=== PATIENT | female | born 1935 | race Caucasian/White ===

== ENCOUNTER 2024-11-11 11:50 | Inpatient (IN) ==
--- NOTE | 2024-11-11 12:29 | Emergency Department Note ---
Impression & Plan Hypoxia, CHF (congestive heart failure), Acute respiratory distress ED Provider Note Diagnosis: Respiratory distress, CHF exacerbation, pulmonary edema, hypoxia Disposition: Admission CHIEF COMPLAINT: Hypoxia HPI: Patient 89-year-old female presenting with acute respiratory distress. Patient placed on nonrebreather by ambulance service. Patient was found to have oxygen saturation of 77% on room air. Patient complaining of shortness of breath currently. Patient denies any chest pain. Patient has history of congestive heart failure and has lower extremity edema today. Patient denies any recent cough or fevers. Patient denies any nausea vomiting or abdominal pain. PAST MEDICAL HISTORY: See Below PAST SURGICAL HISTORY: See Below SOCIAL HISTORY: See Below HOME MEDICATIONS: See Below ALLERGIES: See Below VITALS: See Below PHYSICAL EXAMINATION: GENERAL: Severe distress EYE EXAM: Normal conjunctiva. OROPHARYNX: Moist mucus membranes. Grossly normal dentition. NECK: Supple, LUNGS: Diminished breath sounds bilaterally HEART: NSR, lower extremity edema bilaterally ABDOMEN: Abdomen soft, non-tender, normo-active bowel sounds, no masses, no rebound or guarding BACK: No CVA TTP. SKIN: No rashes and no bruising. UPPER EXTREMITIES: Upper extremities are grossly normal LOWER EXTREMITIES: Grossly normal, no edema. NEURO EXAM: A&O x3,, normal speech, moves all 4 extremities PSYCH: Cooperative MEDICAL DECISION MAKING: History obtained from: Patient, EMS, daughters ER Course: Patient is an 89-year-old female presenting with acute respiratory distress. Patient's daughter reportedly was there at the assisted living last evening and she was her normal self. Assisted living had found her in respiratory distress this morning. Patient placed on a nonrebreather by EMS due to profound hypoxia less than 80%. Patient does not use oxygen at baseline. Patient has lower extremity edema present. Patient has a history of congestive heart failure. Patient had Nitropaste placed as well as given IV Lasix upon arrival. Patient was able to be titrated to 6 L nasal cannula oxygen support. Patient's chest x- ray shows significant pulmonary edema. Patient's troponin and BNP elevated. Patient's case discussed with hospitalist service who agreed to admit for further treatment and evaluation Labs (independently interpreted) are significant for: Elevated troponin, elevated BNP Imaging results (independently interpreted): Chest x-ray pulmonary edema EKG interpretation (independently interpreted): Sinus rhythm no ST segment elevation or depression left bundle branch block Medications given: Nitropaste, Lasix Consultants: Hospitalist CODE STATUS; confirmed with patient and family DNR/ DNI, would allow for medication treatments and BiPAP if needed Chronic conditions affecting care: CHF Triage Nursing notes reviewed and agree them. Vital Signs: reviewed and remarkable for: Hypoxia Critical care time: 55 minutes, this does not include time for procedures Past Med/Surg History Problem List (Updated 11/11/24 @ 16:08 by Ace Perez DO) Acute respiratory distress (Acute) ELISSA (acute kidney injury) NSTEMI (non-ST elevated myocardial infarction) Hypertensive emergency Thrombocytopenia Elevated troponin (Acute) Acute UTI (Acute) Hypoxia (Acute) Vomiting (Acute) CHF (congestive heart failure) (Acute) Respiratory failure (Acute) Acidosis Hypercapnic respiratory failure Hyperglycemia CKD (chronic kidney disease) stage 4, GFR 15-29 ml/min Acute on chronic heart failure Hypoxic respiratory failure Hypothyroidism (Chronic) GERD (gastroesophageal reflux disease) (Chronic) Dyslipidemia (Chronic) Scalp laceration (Acute) Medical History Hypertension Surgical History No pertinent past surgical history Social History Smoking Status: Never smoker Hx Alcohol Use: No Hx Substance Use: No Preferred Language: Portuguese Communication Ability: Effective Sample Taker Operator Required: No Beliefs That Will Affect Care: None Current Living Situation: Alone current occupational status: retired Feels Safe at Home: Yes Assistive Devices: Walker and Wheelchair Allergies Allergies Allergy/AdvReac Type Severity Reaction Status Date / Time Sulfa (Sulfonamide Allergy Intermediate RASH Verified 11/11/24 13:39 Antibiotics) Iodinated Contrast Media AdvReac Unknown NOT TO USE Verified 11/11/24 13:39 DUE TO KIDNEY FAILURE Home Meds Home Medications Medication Instructions Recorded Confirmed atorvastatin 20 mg tablet 20 mg PO QAM 07/30/24 11/11/24 bimatoprost 0.01 % eye drops 1 drp ophthalmic (eye) HS 07/30/24 11/11/24 (Lumigan) dorzolamide 22.3 mg-timolol 6.8 1 drp OPB QAM 07/30/24 11/11/24 mg/mL eye drops furosemide 20 mg tablet 10 mg PO QAM 07/30/24 11/11/24 levothyroxine 75 mcg tablet 75 mcg PO 6XWK 07/30/24 11/11/24 lisinopril 2.5 mg tablet 2.5 mg PO QAM 07/30/24 11/11/24 omeprazole 20 mg tablet,delayed 20 mg PO QAM 07/30/24 11/11/24 release sertraline 50 mg tablet 50 mg PO QPM 07/30/24 11/11/24 acetaminophen 325 mg tablet 650 mg PO Q4H PRN Pain 11/11/24 11/11/24 acetaminophen 500 mg tablet 1,000 mg PO BID PRN Pain 11/11/24 11/11/24 aspirin 81 mg chewable tablet 81 mg PO DAILY 11/11/24 11/11/24 estradiol 0.01% (0.1 mg/gram) 1 g vaginal 2XWK 11/11/24 11/11/24 vaginal cream famotidine 20 mg tablet 20 mg PO HS 11/11/24 11/11/24 lactase 3,000 unit tablet (Lactaid) 9,000 unit PO DAILY PRN W/ Dairy 11/11/24 11/11/24 food loperamide 2 mg capsule (Imodium 2 mg PO TID PRN Diarrhea 11/11/24 11/11/24 A-D) mbpghjnm-hye-[id number] acid 0.4 1 tab PO 3XWK 11/11/24 11/11/24 mg-lycopene 300 mcg-lutein 250 mcg tablet (Centrum Silver) ondansetron HCl 4 mg tablet 4 mg PO Q6H PRN Nausea And Vomiting 11/11/24 11/11/24 sodium bicarbonate 650 mg tablet 650 mg PO BID 11/11/24 11/11/24 Previous Rx's Medication Instructions Recorded carvedilol 6.25 mg tablet 6.25 mg PO BIDM #60 tabs 08/05/24 isosorbide mononitrate 30 mg 30 mg PO QAM #30 tabs 08/05/24 tablet,extended release 24 hr Results & Data (ED) Vital Signs Vital Signs - 24 hr 11/11/24 11:45 11/11/24 12:06 11/11/24 12:06 Temperature 36.5 C Temperature Source Oral Pulse Rate 108 H Pulse Rate [Apical] Pulse Rate from SpO2 Sensor Respiratory Rate 30 H Respiratory Effort / Characteristics Short of Breath Spontaneous Short of Breath Respiratory Depth Shallow Respiratory Pattern Rapid/Shallow Rapid/Shallow Blood Pressure 186/111 H Blood Pressure [Left Arm] Blood Pressure Mean 136 Blood Pressure Mean [Left Arm] Blood Pressure Position Lying Pulse Oximetry 77 L 77 L Oxygen Delivery Method Room Air Room Air Nasal Cannula Non-rebreather Oxygen Flow Rate 0 Sepsis Recent Fever Within 48 Hours No Sepsis New/Unexplained Change in Mental Status No Sepsis Action Taken by Nursing Physician Notified Oxygen Flow Rate - Titration 15 Pulse Oximetry Post Tiitration 96 11/11/24 12:07 11/11/24 12:11 11/11/24 12:15 Temperature Temperature Source Pulse Rate 106 H Pulse Rate [Apical] Pulse Rate from SpO2 Sensor Respiratory Rate Respiratory Effort / Characteristics Respiratory Depth Respiratory Pattern Blood Pressure Blood Pressure [Left Arm] Blood Pressure Mean Blood Pressure Mean [Left Arm] Blood Pressure Position Pulse Oximetry 100 98 Oxygen Delivery Method Nasal Cannula Nasal Cannula Non-rebreather Oxygen Flow Rate 5 15 Sepsis Recent Fever Within 48 Hours Sepsis New/Unexplained Change in Mental Status Sepsis Action Taken by Nursing Oxygen Flow Rate - Titration 5 Pulse Oximetry Post Tiitration 100 11/11/24 12:45 11/11/24 13:00 11/11/24 13:00 Temperature Temperature Source Pulse Rate 149 H Pulse Rate [Apical] 110 H Pulse Rate from SpO2 Sensor 105 H Respiratory Rate 30 H 32 H Respiratory Effort / Characteristics Short of Breath Respiratory Depth Shallow Respiratory Pattern Blood Pressure 182/113 H Blood Pressure [Left Arm] 194/114 H Blood Pressure Mean 146 Blood Pressure Mean [Left Arm] 140 Blood Pressure Position Pulse Oximetry 96 95 Oxygen Delivery Method Nasal Cannula Nasal Cannula Oxygen Flow Rate 4 Sepsis Recent Fever Within 48 Hours Sepsis New/Unexplained Change in Mental Status Sepsis Action Taken by Nursing Oxygen Flow Rate - Titration Pulse Oximetry Post Tiitration 11/11/24 14:30 Temperature Temperature Source Pulse Rate 101 H Pulse Rate [Apical] Pulse Rate from SpO2 Sensor Respiratory Rate Respiratory Effort / Characteristics Respiratory Depth Respiratory Pattern Blood Pressure Blood Pressure [Left Arm] Blood Pressure Mean Blood Pressure Mean [Left Arm] Blood Pressure Position Pulse Oximetry Oxygen Delivery Method Oxygen Flow Rate Sepsis Recent Fever Within 48 Hours Sepsis New/Unexplained Change in Mental Status Sepsis Action Taken by Nursing Oxygen Flow Rate - Titration Pulse Oximetry Post Tiitration Laboratory Data 11/11/24 12:00 11/11/24 12:00 Lab Results 11/11/24 11/11/24 11/11/24 Range/Units 12:00 12:05 14:20 WBC 11.61 H (4.8-10.8) K/ul RBC 3.76 L (4.20-5.40) M/uL Hgb 11.5 L (12.0-16.0) g/dl Hct 36.2 L (37.0-47.0) % MCV 96.3 (80.0-100.0) fL MCH 30.6 (25.0-34.0) pg MCHC 31.8 L (32.0-36.0) g/dL RDW Std Deviation 50.4 H (36.4-46.3) fL RDW Coeff of Amanda 14.5 (11.5-14.5) % Plt Count 217 (130-400) K/uL MPV 10.3 (9.4-12.4) fL Immature Gran % (Auto) 0.7 % Neut % (Auto) 58.3 % Lymph % (Auto) 30.0 % [place] % (Auto) 8.1 % Eos % (Auto) 2.6 % Baso % (Auto) 0.3 % Neut # (Auto) 6.77 H (1.40-6.50) K/uL Lymph # (Auto) 3.48 H (1.20-3.40) K/uL [place] # (Auto) 0.94 H (0.11-0.59) K/uL Eos # (Auto) 0.30 (0.00-0.50) K/uL Baso # (Auto) 0.04 (0.00-0.20) K/uL Immature Gran # (Auto) 0.08 (0.01-0.20) K/uL Sodium 142 (136-145) mmol/L Potassium 4.2 (3.5-5.1) mmol/L Chloride 108 H (98-107) mmol/L Carbon Dioxide 26 (21-32) mmol/L Anion Gap 8 (3-11) BUN 40 H (6-23) mg/dl Creatinine 1.77 H (0.6-1.2) mg/dl Est Cr Clr Drug Dosing Not Reportable eGFR 27.14 BUN/Creatinine Ratio 22.6 H (10-20) Glucose 228 H (70-99(Fasting)) mg/dl Calcium 9.6 (8.6-10.3) mg/dl Total Bilirubin 0.4 (0.2-1.0) mg/dl AST 20 (13-39) U/L ALT 15 (7-52) U/L Alkaline Phosphatase 64 (34-104) U/L Troponin I High Sens 61.4 H* 166.2 H* D (0-14) pg/ml B-Natriuretic Peptide 1495 H (0-100) pg/ml Total Protein 7.3 (6.0-8.3) gm/dl Albumin 3.8 (3.4-5.0) gm/dl Globulin 3.5 (2.5-4.0) gm/dl Albumin/Globulin Ratio 1.1 (0.9-2) Procalcitonin 0.02 (0-0.5) ng/ml SARS-CoV-2 (PCR) NEGATIVE (Negative) Influenza Type A (PCR) Negative (Neg) Influenza Type B (PCR) Negative (Neg) RSV (RT-PCR) Negative (Neg) Administered Medications Nitroglycerin (Nitroglycerin 2% Ointment 30gm Tube) 1 inch EXT Q6H IVONNE Stop: 12/11/24 12:14 Last Admin: 11/11/24 12:33 Dose: 1 inch Documented By: GANGA Discontinued Medications Furosemide (Furosemide 40 Mg/4 Ml Vial) 40 mg IV ONE ONE Stop: 11/11/24 12:11 Last Admin: 11/11/24 12:34 Dose: 40 mg Documented By: GANGA Ondansetron HCl (Ondansetron Inj 2 Mg/Ml 2 Ml Vial) 4 mg IV NOW STA Stop: 11/11/24 13:03 Last Admin: 11/11/24 13:06 Dose: 4 mg Documented By: GILDA Imaging Data Radiologist's Impression: Chest X-Ray 11/11/24 12:11 XR chest 1V portable HISTORY: 89 years-old Female Dyspnea COMPARISON: 07/31/2024, 07/30/2024. TECHNIQUE: AP view of the chest FINDINGS: Cardiac silhouette is enlarged. There is no pneumothorax. Probable trace pleural effusions. Probable hiatal hernia. Diffuse interstitial coarsening is again noted with ill-defined right midlung and right basilar airspace opacities redemonstrated, not significantly similar to the July 2024 exams. Bones appear grossly intact. IMPRESSION: 1. Cardiomegaly with mixed interstitial and alveolar opacities redemonstrated, similar to the July 2024 exams. Differential considerations include asymmetric pulmonary edema versus multifocal pneumonia. 2. Probable trace pleural effusions. ACT 112: Negative or not required by law. The above report was generated using voice recognition software. It may contain grammatical, syntax or spelling errors. Electronically signed by: Phillip Nicole M.D. 11/11/2024 1:29 PM Discharge Plan Visit Data Chief Complaint: Shortness of Breath/Dyspnea Stated Complaint: SOB, HYPERTENSION ED Provider: Ace Perez Discharge Problem: Hypoxia, CHF (congestive heart failure), Acute respiratory distress Condition: Critical Forms Stand Alone Forms: [facility] [employer] Prescriptions Prescriptions: No Action dorzolamide-timolol 22.3-6.8 mg/mL drops 1 drp OPB QAM sertraline 50 mg tablet 50 mg PO QPM lisinopril 2.5 mg tablet 2.5 mg PO QAM atorvastatin 20 mg tablet 20 mg PO QAM levothyroxine 75 mcg tablet 75 mcg PO 6XWK Rx Instructions: take in morning at least 30 minutes prior to breakfast or other meds. Skip on Sundays furosemide 20 mg tablet 10 mg PO QAM Lumigan 0.01 % drops 1 drp ophthalmic (eye) HS omeprazole 20 mg Tablet,Delayed Release (Dr/Ec) 20 mg PO QAM carvedilol 6.25 mg Tablet 6.25 mg PO BIDM Qty: 60 0RF isosorbide mononitrate 30 mg Tablet Extended Release 24 Hr 30 mg PO QAM Qty: 30 0RF acetaminophen 325 mg Tablet 650 mg PO Q4H PRN (Reason: Pain) loperamide [Imodium A-D] 2 mg Capsule 2 mg PO TID PRN (Reason: Diarrhea) ondansetron HCl 4 mg tablet 4 mg PO Q6H PRN (Reason: Nausea And Vomiting) acetaminophen [Tylenol Ex Str Rapid Release] 500 mg Tablet 1,000 mg PO BID PRN (Reason: Pain) famotidine 20 mg Tablet 20 mg PO HS sodium bicarbonate 650 mg tablet 650 mg PO BID lactase [Lactaid] 3,000 unit Tablet 9,000 unit PO DAILY PRN (Reason: W/ Dairy food) Rx Instructions: administer with meals and/or snacks aspirin 81 mg Tablet,Chewable 81 mg PO DAILY estradiol 0.01 % (0.1 mg/gram) cream 1 g VAGINAL 2XWK Rx Instructions: /Sat Centrum Silver 0.4 mg-300 mcg- 250 mcg Tablet 1 tab PO 3XWK Rx Instructions: Mon/Sat/Fri Referrals Referrals: Noman Cerda MD [Primary Care Provider] -
[2024-11-11 12:32] LABS: Hematocrit (blood only) 36.2 % (37.0-47.0); Hemoglobin 11.5 g/dl (12.0-16.0); Immature Granulocytes # (auto) 0.08 K/uL (0.01-0.20); Immature Granulocytes % (auto) 0.7 %; Mean Corpuscular Hemoglobin 30.6 pg (25.0-34.0); Mean Corpuscular Volume 96.3 fL (80.0-100.0); Platelet Count 217 K/uL (130-400); RDW Standard Deviation 50.4 fL (36.4-46.3); Red Blood Count 3.76 M/uL (4.20-5.40); White Blood Count 11.61 K/ul (4.8-10.8)
[2024-11-11] MEDS: NITROGLYCERIN 2% OINTMENT 30GM TUBE EXT SCH (12:33)
[2024-11-11] MEDS: FUROSEMIDE 40 MG/4 ML VIAL IV ONE (12:34)
[2024-11-11 12:55] LABS: Alanine Aminotransferase 15 U/L (7-52); Albumin Globulin Ratio 1.1 (0.9-2); Alkaline Phosphatase 64 U/L (34-104); Anion Gap 8 (3-11); Bilirubin,Total 0.4 mg/dl (0.2-1.0); Blood Urea Nitrogen 40 mg/dl (6-23); Calcium 9.6 mg/dl (8.6-10.3); Carbon Dioxide 26 mmol/L (21-32); Chloride 108 mmol/L (98-107); Globulin 3.5 gm/dl (2.5-4.0); Glucose 228 mg/dl (70-99(Fasting)); Potassium 4.2 mmol/L (3.5-5.1); Sodium 142 mmol/L (136-145); Total Protein 7.3 gm/dl (6.0-8.3)
[2024-11-11 13:05] LABS: Influenza A virus by PCR Negative (Neg); Influenza B virus by PCR Negative (Neg); SARS CoV2 RNA(COVID-19) Ceph NEGATIVE (Negative)
[2024-11-11] MEDS: ONDANSETRON INJ 2 MG/ML 2 ML VIAL IV STA (13:06)
--- NOTE | 2024-11-11 13:30 | XRay Report ---
XR chest 1V portable HISTORY: 89 years-old Female Dyspnea COMPARISON: 07/31/2024, 07/30/2024. TECHNIQUE: AP view of the chest FINDINGS: Cardiac silhouette is enlarged. There is no pneumothorax. Probable trace pleural effusions. Probable hiatal hernia. Diffuse interstitial coarsening is again noted with ill-defined right midlung and righ t basilar airspace opacities redemonstrated, not significantly similar to the July 2024 exams. Bones a ppear grossly intact. IMPRESSION: 1. Cardiomegaly with mixed interstitial and alveolar opacities redemonstrated, similar to the July exams. Differential considerations include asymmetric pulmonary edema versus multifocal pneumonia. 2. Probable trace pleural effusions. ACT 112: Negative or not required by law. The above report was generated using voice recognition software. It may contain grammatical, syntax o r spelling errors. Electronically signed by: Phillip Nicole M.D. 11/11/2024 1:29 PM
[2024-11-11] MEDS ORDERED: ALUMINUM/MAGNESIUM SUSP 30 ML UDC PO PRN (14:23)
[2024-11-11] MEDS ORDERED: POLYETHYLENE (MIRALAX) 17 GM PACK PO PRN (14:23)
--- NOTE | 2024-11-11 14:45 | History & Physical Report ---
Date of Service November 11, 2024 Assessment & Plan (1) Hypoxia: Plan Acute on chronic heart failure with reduced ejection fraction: July 2024 ECHO w/ EF of 35-40%. Acute hypoxic respiratory failure ISO heart failure exacerbation Demand ischemia: Likely secondary to acute illness, above. Patient presents with acute shortness of breath, cough with clear sputum. Imaging CXR with pulmonary edema, BNP elevated than prior. Troponin minimally elevated, will trend. Patient denied chest pain. Patient was given IV Lasix in the ED and was able to be weaned down to from 15 L nonrebreather to 6 L nasal cannula oxygen. Patient reports feeling better after IV Lasix. Continue with diuresis, cardiology consult, repeat echo. Continue telemetry monitoring. Abdominal pain, nausea, vomiting: possible iso acute illness, mild abd tender on exam. Will get CTAP, diet as tolerated. Possible UTI: Patient complains of burning urine, start Rocephin, await urine analysis. Hypertensive urgency: c/w home bp meds, now on increased diuretic dose, add prn bp meds. Other chronic medical conditions: Continue/resume home meds as and when able. NSTEMIcontinue home aspirin, Lipitor, carvedilol Hyperlipidemiacontinue home statin Hypertensioncontinue home Coreg, lisinopril, isosorbide. As needed blood pressure medications. DVT prophylaxis: Heparin subcu CODE STATUS: DNR/DNI History of Present Illness Chief Complaint: acute shortness of breath. Primary Care Provider: Noman Cerda MD 89-year-old lady with PMH of hypothyroidism, HLD, CKD stage IV, GERD, depression presents with acute respiratory distress from the [facility]. Patient's daughters were at bedside. History taken from chart review, d iscussion with ED physician, discussion with patient and patient's daughters. Per patient's daughter, she was at her baseline state of health until last evening, she started to have coughing fits last night, in the morning she was noted to have abdominal pain and some fever and increasing cough. Cough was with clear sputum according to the daughters. Patient had some nausea and vomiting in the morning. Patient does report some burning while passing urine for a while. Per patient's daughter, her oxygen dropped to 84% on room air at the assisted living and her blood pressure was high with SBP in 200s. Per discussion with the ED physician, patient was placed on nonrebreather and received IV Lasix in the ED and was able to wean down to 6 L nasal cannula oxygen. The daughter stated that she had similar situation in July and was admitted for heart failure exacerbation. Patient does not smoke tobacco or use alcohol. DNR/DNI as per my discussion with the patient and her daughters at bedside. Medications and plan of care reviewed with the patient and her daughters at bedside. Patient takes dorzolamide timolol eyedrops every morning, Synthroid 75 mcg every morning except Sundays, sodium bicarbonate 650 mg tablet twice daily, aspirin 81 mg every morning, Lipitor 20 mg daily, Coreg 6.25 mg twice daily, Lasix 10 mg Daily, Imdur 30 mg Daily, Prinivil 2.5 mg daily, Prilosec 20 mg daily, Pepcid 20 mg at bedtime, Lumigan 0.01% eyedrops at bedtime, Zoloft 50 mg in the evening. Allergies Allergy/AdvReac Type Severity Reaction Status Date / Time Sulfa (Sulfonamide Allergy Intermediate RASH Verified 11/11/24 13:39 Antibiotics) Iodinated Contrast Media AdvReac Unknown NOT TO USE Verified 11/11/24 13:39 DUE TO KIDNEY FAILURE Home Medications Medication Instructions Recorded Confirmed Type atorvastatin 20 mg tablet 20 mg PO QA 07/30/24 11/11/24 History bimatoprost 0.01 % eye drops 1 drp ophthalmic (eye) HS 07/30/24 11/11/24 History (Lumigan) dorzolamide 22.3 mg-timolol 6.8 1 drp OPB [facility] 07/30/24 11/11/24 History mg/mL eye drops furosemide 20 mg tablet 10 mg PO QA 07/30/24 11/11/24 History levothyroxine 75 mcg tablet 75 mcg PO 6XWK 07/30/24 11/11/24 History lisinopril 2.5 mg tablet 2.5 mg PO [facility] 07/30/24 11/11/24 History omeprazole 20 mg tablet,delayed 20 mg PO QA 07/30/24 11/11/24 History release sertraline 50 mg tablet 50 mg PO QPM 07/30/24 11/11/24 History carvedilol 6.25 mg tablet 6.25 mg PO BIDM #60 tabs 08/05/24 11/11/24 Rx isosorbide mononitrate 30 mg 30 mg PO QAM #30 tabs 08/05/24 11/11/24 Rx tablet,extended release 24 hr acetaminophen 325 mg tablet 650 mg PO Q4H PRN Pain 11/11/24 11/11/24 History acetaminophen 500 mg tablet 1,000 mg PO BID PRN Pain 11/11/24 11/11/24 History aspirin 81 mg chewable tablet 81 mg PO DAILY 11/11/24 11/11/24 History estradiol 0.01% (0.1 mg/gram) 1 g vaginal 2XWK 11/11/24 11/11/24 History vaginal cream famotidine 20 mg tablet 20 mg PO HS 11/11/24 11/11/24 History lactase 3,000 unit tablet (Lactaid) 9,000 unit PO DAILY PRN W/ Dairy 11/11/24 11/11/24 History food loperamide 2 mg capsule (Imodium 2 mg PO TID PRN Diarrhea 11/11/24 11/11/24 History A-D) gibcfsoo-lmh-iduqo acid 0.4 1 tab PO 3XWK 11/11/24 11/11/24 History mg-lycopene 300 mcg-lutein 250 mcg tablet (Centrum Silver) ondansetron HCl 4 mg tablet 4 mg PO Q6H PRN Nausea And Vomiting 11/11/24 11/11/24 History sodium bicarbonate 650 mg tablet 650 mg PO BID 11/11/24 11/11/24 History Past Med/Surg History Problem List (Updated 09/05/24 @ 00:08 by Rosalba Rouse) ELISSA (acute kidney injury) NSTEMI (non-ST elevated myocardial infarction) Hypertensive emergency Thrombocytopenia Elevated troponin (Acute) Acute UTI (Acute) Hypoxia (Acute) Vomiting (Acute) CHF (congestive heart failure) (Acute) Respiratory failure (Acute) Acidosis Hypercapnic respiratory failure Hyperglycemia CKD (chronic kidney disease) stage 4, GFR 15-29 ml/min Acute on chronic heart failure Hypoxic respiratory failure Hypothyroidism (Chronic) GERD (gastroesophageal reflux disease) (Chronic) Dyslipidemia (Chronic) Scalp laceration (Acute) Medical History Hypertension Surgical History No pertinent past surgical history Social History Smoking Status: Never smoker Hx Alcohol Use: No Hx Substance Use: No Preferred Language: Tunisian Communication Ability: Effective Nuclear Engineer Required: No Beliefs That Will Affect Care: None Current Living Situation: Alone current occupational status: retired Feels Safe at Home: Yes Assistive Devices: Walker and Wheelchair Review of Systems Review of Systems: Negative otherwise mentioned in HPI. Physical Exam Physical Exam: GENERAL: Alert and oriented x3. NAD, on 4L NC O2, appears old, weak, frail, ill. HEENT: No pallor, no icterus. Pupils equal, round and reactive to light. Oral mucosa moist. NECK: No JVD, no neck masses. HEART: S1 and S2 heard. Regular rate and rhythm. HR in 100s, No murmur, no gallop. RESPIRATORY SYSTEM: Normal AP diameter. No accessory muscle use. No wheezing, b/l crackles. ABDOMEN: Soft, bowel sounds present, generalized tender x mild, no distention. CENTRAL NERVOUS SYSTEM: No facial droop. Speech is clear. Obeys simple commands. Moves extremities. EXTREMITIES: trace ble edema, no erythema seen. Results & Data Results & Data Vital Signs (Past 12 Hours) Vital Signs Temp Pulse Pulse Resp BP BP Pulse Ox 11/11/24 13:00 149 H 32 H 95 11/11/24 13:00 182/113 H 11/11/24 12:45 110 H 30 H 194/114 H 96 11/11/24 12:15 98 11/11/24 12:11 100 11/11/24 12:07 106 H 11/11/24 12:06 77 L 11/11/24 11:45 36.5 C 108 H 30 H 186/111 H 77 L O2 Del Method O2 Flow Rate 11/11/24 13:00 Nasal Cannula 11/11/24 13:00 11/11/24 12:45 Nasal Cannula 4 11/11/24 12:15 Nasal Cannula, Non-rebreather 15 11/11/24 12:11 Nasal Cannula 5 11/11/24 12:07 11/11/24 12:06 Room Air, Nasal Cannula, Non-rebreather 0 11/11/24 11:45 Room Air
--- NOTE | 2024-11-11 16:18 | Electrocardiogram Report ---
Test Reason : Blood Pressure : */* mmHG Vent. Rate : 113 BPM Atrial Rate : 113 BPM P-R Int : 190 ms QRS Dur : 138 ms QT Int : 338 ms P-R-T Axes : * -16 151 degrees QTcB Int : 463 ms Sinus tachycardia with occasional Premature ventricular complexes Left bundle branch block Abnormal ECG When compared with ECG of 01-Aug-2024 04:42, Premature ventricular complexes are now Present Premature supraventricular complexes are no longer Present CT interval has decreased Left bundle branch block is now Present Confirmed by Jones Amezcua ([id number]) on 11/11/2024 4:17:46 PM Referred By: Confirmed By: Jones Amezcua
[2024-11-11] MEDS: cefTRIAXone SODIUM 2,000 MG/50 ML BAG IV SCH (16:49)
[2024-11-11] MEDS: ONDANSETRON INJ 2 MG/ML 2 ML VIAL IV PRN (18:05)
[2024-11-11] MEDS: LEVOTHYROXINE SODIUM 75 MCG TABLET PO SCH (18:07)
[2024-11-11 18:41] LABS: Appearance Urine Clear (Clear); Glucose Urine UA Negative (Negative)
[2024-11-11 18:58] LABS: Epithelial Cell Urine 0-2 /hpf (0-2)
[2024-11-11] MEDS: LABETALOL HCL IV 5 MG/ML 20ML IV PRN (19:54)
[2024-11-11] MEDS: SODIUM BICARBONATE 650 MG TAB PO SCH (20:09)
[2024-11-11] MEDS: BIMATOPROST 0.01% OP SOLN 2.5 ML BTL OPB SCH (20:09)
[2024-11-11] MEDS: HEPARIN SOD 5,000 UNIT/0.5 ML VIAL SQ SCH (20:09)
[2024-11-11] MEDS: SERTRALINE HCL 50 MG TABLET PO SCH (20:10)
[2024-11-11] MEDS: FAMOTIDINE 20 MG TAB PO SCH (20:10)
--- NOTE | 2024-11-12 04:14 | Communication Note ---
Date of Service: November 12, 2024 Made aware by RN of progressive troponin elevation overnight Patient asymptomatic as per RN. 61 -> 166 -> 1014 -> 2501 AP NSTEMI Continue aspirin, beta-negro and statin Rx orders from admission TTE, IV heparin
[2024-11-12] MEDS: HEPARIN 25000 UNIT/500 ML D5W 25,000 UNITS/500 ML BAG IV SCH (04:55)
[2024-11-12] MEDS: Heparin IV Adult Wt-Based Standard *NO* INITIAL Bolus Protocol IV STA (05:03)
[2024-11-12] MEDS: ACETAMINOPHEN 325 MG TAB PO PRN (05:11)
[2024-11-12 05:51] LABS: Hematocrit (blood only) 37.7 % (37.0-47.0); Hemoglobin 11.8 g/dl (12.0-16.0); Immature Granulocytes # (auto) 0.11 K/uL (0.01-0.20); Immature Granulocytes % (auto) 0.8 %; Mean Corpuscular Hemoglobin 30.3 pg (25.0-34.0); Mean Corpuscular Volume 96.9 fL (80.0-100.0); Platelet Count 183 K/uL (130-400); RDW Standard Deviation 49.7 fL (36.4-46.3); Red Blood Count 3.89 M/uL (4.20-5.40); White Blood Count 13.02 K/ul (4.8-10.8)
[2024-11-12 06:06] LABS: Anion Gap 11.0 (3-11); Blood Urea Nitrogen 47.0 mg/dl (6-23); Calcium 9.7 mg/dl (8.6-10.3); Carbon Dioxide 25.0 mmol/L (21-32); Chloride 108.0 mmol/L (98-107); Creatinine Clr Calc Pharmacy 13.4 ml/min; Glucose 135.0 mg/dl (70-99(Fasting)); Magnesium 2.3 mg/dl (1.7-2.4); Potassium 4.6 mmol/L (3.5-5.1); Sodium 144.0 mmol/L (136-145)
[2024-11-12 06:20] LABS: INR 1.0 (0.9-1.1); Partial Thromboplastin Time 30 Seconds (21-31); Prothrombin Time 10.9 Seconds (9.0-12.0)
[2024-11-12] MEDS: LACTASE 3000 UNIT TAB PO PRN (07:55)
[2024-11-12] MEDS: ISOSORBIDE MONO EXTENDED REL 30 MG TABCR PO SCH (07:56)
[2024-11-12] MEDS: ADVANCED PROBIOTIC 625 MG CAPSULE PO SCH (07:56)
[2024-11-12] MEDS: DORZOLAMIDE/TIMOLOL 22.3/6.8MG/ML 10 ML BTL OPB SCH (07:57)
[2024-11-12] MEDS: ATORVASTATIN 20 MG TAB PO SCH (07:57)
[2024-11-12] MEDS: FUROSEMIDE 40 MG/4 ML VIAL IV SCH (07:57)
[2024-11-12] MEDS: ASPIRIN 81 MG CHEW PO SCH (07:57)
--- NOTE | 2024-11-12 11:07 | CT Scan Report ---
CT SCAN OF THE ABDOMEN AND PELVIS WITHOUT IV CONTRAST CLINICAL HISTORY: Generalized abdominal pain. COMPARISON STUDY: No priors TECHNIQUE: CT scan of the abdomen and pelvis is performed from the lung bases to the proximal femora. Images are reviewed in the axial, sagittal, and coronal planes. IV contrast was not administered for this examination. Note that the examination was performed in suboptimal fashion without oral and IV contrast. There is streak artifact from the arms which could not be elevated above the abdomen as wel l as motion artifact. A dose lowering technique was utilized adhering to the principles of ALARA. CT DOSE: 601.63 mGy.cm FINDINGS: Lung bases: The heart is enlarged and without pericardial effusion. The coronary arteries are densely calcified. There is a moderate hiatal hernia. There are small pleural effusions with dependent conso lidation. Milder groundglass opacities are seen in the right lower lung and there is diffuse intralob ular septal thickening. Liver: The unenhanced liver is normal in size, contour, and attenuation. There is mild central intrah epatic biliary ductal dilatation. Gallbladder: Surgically absent noting clips in the gallbladder fossa. Spleen: Normal in size and attenuation. Pancreas: The unenhanced pancreas is moderately atrophic and grossly unremarkable. Adrenal glands: Unremarkable. Kidneys: The unenhanced kidneys are atrophic and without hydronephrosis. There are no renal calculi i dentified. There is no evidence of contour deforming renal mass lesion. Abdominal vasculature: There is advanced atherosclerotic calcification and mild ectasia of the abdomi nal aorta. Bowel: There is retrosigmoid fecal retention. No bowel obstruction is seen. There is diverticulosis o f the sigmoid colon without CT evidence of acute diverticulitis. The appendix is well-visualized and normal. Peritoneum: There is no intraperitoneal free air or abdominal ascites. Lymphadenopathy: None. Pelvic viscera: The bladder is mildly distended but otherwise normal as imaged. The uterus is surgica lly absent. No adnexal lesion is seen. A right inguinal hernia contains nonobstructed small bowel loo ps. There is a fat-containing inguinal hernia on left. Skeletal structures: The skeletal structures are osteopenic. There is moderate to advanced lumbosacra l spondylosis and moderate scoliosis. No lytic or blastic lesions are seen. There are chronic/healed left-sided rib fractures. Soft tissues: There is mild body wall edema. IMPRESSION: 1. Suboptimal examination without oral and IV contrast. There is also streak and motion artifact. 2. Cardiomegaly with evidence of congestive failure. 3. There are small pleural effusions with bibasilar consolidation. Correlate clinical history for miesha dence of a superimposed pneumonia/aspiration pneumonitis. Radiographic follow-up to resolution is rec ommended. 4. No acute infectious or inflammatory findings are identified in the abdomen or pelvis. 5. There are bilateral inguinal hernias. The right-sided hernia contains nonobstructed small bowel lo ops. 6. Sigmoid diverticulosis without CT evidence of acute diverticulitis. 7. Additional findings as above. ACT 112: Negative or not required by law. Electronically signed by: Blade Everett M.D. 11/12/2024 11:06 AM
[2024-11-12 12:10] LABS: ANTI-Xa, UFH(UnfractionatedHep 0.81 IU/ml (0.3-0.7)
--- NOTE | 2024-11-12 15:53 | Cardiology Consultation ---
Date of Consultation November 12, 2024 Assessment & Plan (1) NSTEMI (non-ST elevated myocardial infarction): (2) Acute respiratory distress: (3) Hypertensive emergency: (4) LV (left ventricular) mural thrombus: (5) Acute on chronic heart failure with reduced ejection fraction and diastolic dysfunction: Plan Patient is an 89 year old female admitted for SOB/hypoxia, findings consistent with acute respiratory failure with hypoxia, HFrEF and NSTEMI with hypertensive urgency. Respiratory status/hypoxia/HFrEF improving with IV lasix - -Continue Furosemide 40 mg IV -Monitor I+O's -Monitor renal function and electrolytes - NSTEMI with new LV thrombus -EKG with LBBB (previously had incomplete LBBB/widened QRS) -LVEF 20-25%, which is a decline from July 2024 echo at 35% -Elevated troponin at 2500 -Continue IV heparin for 48 hours -Continue ASA, statin, carvedilol, isosorbide/nitro oint, and lisinopril. -As BP improves, can remove nitro oint. -Patient currently chest pain free -given advanced age and comorbidities - conservative therapies recommended LV thrombus noted on echo -Continue IV heparin for now -transition to oral low dose Eliquis 2.5 mg BID prior to discharge No family present at time of my evaluation. Conservative med management re commended for NSTEMI, HFrEF. Consider palliative care/hospice. Case discussed with Dr. Cleveland I spent a total of 60 minutes on the date of service in preparation, delivery, and documentation of the care provided to this patient, excluding any time spent in the performance of separately billed services. Jennifer Garces PA-C Department of Cardiology, [facility] This chart was completed in part utilizing Speech Voice Recognition Software. Grammatical errors, random word insertions, pronoun errors, and incomplete sentences are an occasional consequence of this system due to software limit ations, ambient noise, and hardware issues. Any formal questions or concerns about the content, text, or information contained within the body of this dictation should be directly addressed to the provider for clarification. Supervising Physician Co-Signing Physician Notes I have personally performed a history and physical examination on the patient. I have reviewed the advance practitioner's documentation, and I agree with, and take responsibility for the plan of care. 89-year-old female with NSTEMI, acute on chronic heart failure with reduced ejection fraction, and evidence of apical LV thrombus on echocardiogram. Daughter present at bedside requesting conservative management. Continue IV heparin and furosemide. Monitor fluid balance, daily weight, GFR, and electrolyte. Continue other cardiovascular medications Kutty aspirin, statin, carvedilol, isosorbide, and lisinopril. Likely transition to reduced-dose Eliquis at discharge. Agree with palliative care referral. Cristobal Cleveland DO, [facility] I spent a total of 40 minutes on the date of service in preparation, delivery, and documentation of the care provided to this patient, excluding any time spent in the performance of separately billed services. History of Present Illness Reason for Consultation: NSTEMI; Acute HFrEF Requesting Physician: Amparo Love Attending Physician: Will Lujan MD History of Present Illness Patient is a complex 89 year old female admitted with worsening SOB and cough with weakness. Diagnosed with acute on chronic respiratory failure with hypoxia, HFrEF and NSTEMI. Chest xray with pulm vascular congestion. Treated with IV lasix and started on Non rebreather. symptoms began to improve in ER with lasix. She was hypertensive and started on nitro oint EKG demonstrating Sinus tach with wide QRS, consistent with LBBB. compared with prior EKG, she has had widened QRS in the past consistent with LBBB/incomplete LBBB. Elevated troponin noted on admission - 96 - 769 - 3080 - 9757 - 0007 Started on IV heparin No chest pain reported by patient. Given age/comorbidities, med management recommended. Interventional cardiology not contacted. Recent admission in July 2024 with similar presentation - acute HFrEF - LVEF at 35% and NSTEMI with elevated troponin peaking around 39,000. Med management recommended. At time of consult this morning, patient resting in bed. Feeling "ok". no family at bedside at time of my evaluation. Ongoing cough reported but improved. No ch est pain. Cardiac Problems: 1. PSVT 2. CKD stage 4 3. HFrEF (35-40% per echo at [facility] 07/31/24) 4. 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, Mild AI, moderate MR and mild TR Allergies Allergy/AdvReac Type Severity Reaction Status Date / Time Sulfa (Sulfonamide Allergy Intermediate RASH Verified 11/11/24 13:39 Antibiotics) Iodinated Contrast Media AdvReac Unknown NOT TO USE Verified 11/11/24 13:39 DUE TO KIDNEY FAILURE Home Medications Medication Instructions Recorded Confirmed Type atorvastatin 20 mg tablet 20 mg PO QAM 07/30/24 11/11/24 History bimatoprost 0.01 % eye drops 1 drp ophthalmic (eye) HS 07/30/24 11/11/24 History (Lumigan) dorzolamide 22.3 mg-timolol 6.8 1 drp OPB QA 07/30/24 11/11/24 History mg/mL eye drops furosemide 20 mg tablet 10 mg PO QAM 07/30/24 11/11/24 History levothyroxine 75 mcg tablet 75 mcg PO 6XWK 07/30/24 11/11/24 History lisinopril 2.5 mg tablet 2.5 mg PO QA 07/30/24 11/11/24 History omeprazole 20 mg tablet,delayed 20 mg PO QA 07/30/24 11/11/24 History release sertraline 50 mg tablet 50 mg PO QPM 07/30/24 11/11/24 History carvedilol 6.25 mg tablet 6.25 mg PO BIDM #60 tabs 08/05/24 11/11/24 Rx isosorbide mononitrate 30 mg 30 mg PO QAM #30 tabs 08/05/24 11/11/24 Rx tablet,extended release 24 hr acetaminophen 325 mg tablet 650 mg PO Q4H PRN Pain 11/11/24 11/11/24 History acetaminophen 500 mg tablet 1,000 mg PO BID PRN Pain 11/11/24 11/11/24 History aspirin 81 mg chewable tablet 81 mg PO DAILY 11/11/24 11/11/24 History estradiol 0.01% (0.1 mg/gram) 1 g vaginal 2XWK 11/11/24 11/11/24 History vaginal cream famotidine 20 mg tablet 20 mg PO HS 11/11/24 11/11/24 History lactase 3,000 unit tablet (Lactaid) 9,000 unit PO DAILY PRN W/ Dairy 11/11/24 11/11/24 History food loperamide 2 mg capsule (Imodium 2 mg PO TID PRN Diarrhea 11/11/24 11/11/24 History A-D) zydenkau-yfo-vtmjd acid 0.4 1 tab PO 3XWK 11/11/24 11/11/24 History mg-lycopene 300 mcg-lutein 250 mcg tablet (Centrum Silver) ondansetron HCl 4 mg tablet 4 mg PO Q6H PRN Nausea And Vomiting 11/11/24 11/11/24 History sodium bicarbonate 650 mg tablet 650 mg PO BID 11/11/24 11/11/24 History Patient History Medical History Hypertension Surgical History No pertinent past surgical history Social History Smoking Status: Never smoker Hx Alcohol Use: No Hx Substance Use: No Preferred Language: Setswana Communication Ability: Effective Customer Support Engineer Required: No Beliefs That Will Affect Care: None Current Living Situation: Personal Care Facility and Other current occupational status: retired Other Information That Helps Us Care for You: No Feels Safe at Home: Yes Safety Concerns: Feels Safe At This Time Assistive Devices: Walker Review of Systems Review of Systems: All systems reviewed & are unremarkable except as noted in HPI & below Physical Exam Constitutional: + ill appearing and + thin; no acute dis tress Neck: normal visual inspection Respiratory: + cough and + tachypneic Auscultation : + crackles Cardiovascular: Rate/Rhythm: regular rate and regular rhythm Heart Sounds: + murmur (II/ systolic murmur) Gastrointestinal (Abdomen): normal bowel sounds, soft, nontender, no hepatosplenomegaly Neurologic: PERRL, EOMI, accommodation nl, no face palsy, no dysarthria Results & Data Vital Signs (Past 12 Hours) Vital Signs Temp Pulse Resp BP Pulse Ox O2 Del Method O2 Flow Rate 11/12/24 12:24 36.4 C L 76 18 143/66 H 95 Nasal Cannula 1 11/12/24 08:50 Nasal Cannula 2 11/12/24 08:12 36.4 C L 85 20 100 Nasal Cannula 4 11/12/24 07:50 154/80 H Laboratory Results Cardiac Enzymes 11/11/24 11/12/24 11/12/24 Range/Units 19:56 03:08 09:04 Troponin I High Sens 1014.2 H* D 2501.7 H* D 2686.4 H* (0-14) pg/ml Coagulation 11/12/24 Range/Units 05:00 PT 10.9 (9.0-12.0) Seconds APTT 30 (21-31) Seconds CBC 11/12/24 Range/Units 05:00 WBC 13.02 H (4.8-10.8) K/ul RBC 3.89 L (4.20-5.40) M/uL Hgb 11.8 L (12.0-16.0) g/dl Hct 37.7 (37.0-47.0) % Plt Count 183 (130-400) K/uL Neut # (Auto) 11.37 H (1.40-6.50) K/uL Lymph # (Auto) 0.86 L (1.20-3.40) K/uL Humphreys # (Auto) 0.65 H (0.11-0.59) K/uL Eos # (Auto) 0.00 (0.00-0.50) K/uL Baso # (Auto) 0.03 (0.00-0.20) K/uL Comprehensive Metabolic Panel 11/12/24 Range/Units 05:00 Sodium 144 (136-145) mmol/L Potassium 4.6 (3.5-5.1) mmol/L Chloride 108 H (98-107) mmol/L Carbon Dioxide 25 (21-32) mmol/L BUN 47 H (6-23) mg/dl Creatinine 2.04 H (0.6-1.2) mg/dl Glucose 135 H (70-99(Fasting)) mg/dl Calcium 9.7 (8.6-10.3) mg/dl Intake and Output 11/12/24 11/12/24 11/12/24 06:59 14:59 22:59 Intake Total 50 / 100 543.817 / 543.817 Output Total 150 / 300 100 / 100 Balance -100 / -200 443.817 / 443.817 Intake: IV 123.817 / 123.817 Heparin 19078 Unit/500 ml D5w 123.817 / 123.817 25,000 units In 500 ml @ 750 UNITS/HR 15 mls/hr IV .Q24H [facility] Rx#:[id number] Oral 50 / 50 420 / 420 Output: Urine 100 / 100 Urine Amount (Catheter) 150 / 300 External 150 / 300 Other: # Unmeasured Voids 1 Weight 51.2 kg Weight Measurement Method Built in [facility] Diagnostic Findings Telemetry reviewed: NSR 70-90's. EKG on admission: Sinus tachycardia, LBBB Echo report reviewed from 11/11 - LVEF severely reduced at 20-25% Mild concentric LVH Mid and apical inferior wall is hypokinetic Apical anterior wall is akinetic Aortic sclerosis without stenosis Moderate MR Moderate TR Elevated pulm pressure at 70 mmHg Repeat echo 11/11 with Definity: Small laminar apical thrombus LVEF 20-25% Chest X-Ray 11/11/24 12:11 XR chest 1V portable HISTORY: 89 years-old Female Dyspnea COMPARISON: 07/31/2024, 07/30/2024. TECHNIQUE: AP view of the chest FINDINGS: Cardiac silhouette is enlarged. There is no pneumothorax. Probable trace pleural effusions. Probable hiatal hernia. Diffuse interstitial coarsening is again noted with ill-defined right midlung and right basilar airspace opacities redemonstrated, not significantly similar to the July 2024 exams. Bones appear grossly intact. IMPRESSION: 1. Cardiomegaly with mixed interstitial and alveolar opacities redemonstrated, similar to the July 2024 exams. Differential considerations include asymmetric pulmonary edema versus multifocal pneumonia. 2. Probable trace pleural effusions. Medications Administered Current Inpatient Medications Acetaminophen (Acetaminophen 325 Mg Tab) 650 mg PO Q4H PRN PRN Reason: Pain or Fever Stop: 12/11/24 14:22 Last Admin: 11/12/24 05:11 Dose: 650 mg Al Hydrox/Mg Hydrox/Simethicone (Aluminum/Magnesium Susp 30 Ml Udc) 15 ml PO Q4H PRN PRN Reason: Dyspepsia Stop: 12/11/24 14:22 Aspirin (Aspirin 81 Mg Chew) 81 mg PO DAILY IVONNE Stop: 12/12/24 08:59 Last Admin: 11/12/24 07:57 Dose: 81 mg Atorvastatin Calcium (Atorvastatin 20 Mg Tab) 20 mg PO QAM IVONNE Stop: 12/12/24 08:59 Last Admin: 11/12/24 07:57 Dose: 20 mg Bimatoprost (Bimatoprost 0.01% Op Soln 2.5 Ml Btl) 1 drops OPB HS IVONNE Stop: 12/11/24 20:59 Last Admin: 11/11/24 20:09 Dose: 1 drops Carvedilol (Carvedilol 6.25 Mg Tab) 6.25 mg PO BIDM [facility] Stop: 12/11/24 16:59 Last Admin: 11/12/24 07:56 Dose: 6.25 mg Dorzolamide/Timolol (Dorzolamide/Timolol 22.3/6.8mg/Ml 10 Ml Btl) 1 drops [facility] Stop: 12/12/24 08:59 Last Admin: 11/12/24 07:57 Dose: 1 drops Famotidine (Famotidine 20 Mg Tab) 20 mg PO [facility] Stop: 12/11/24 20:59 Last Admin: 11/11/24 20:10 Dose: 20 mg Furosemide (Furosemide 40 Mg/4 Ml Vial) 40 mg [facility] Stop: 12/12/24 08:59 Last Admin: 11/12/24 07:57 Dose: 40 mg Ceftriaxone Sodium (Rocephin) 2,000 mg in 50 mls @ 100 mls/hr IV Q24H [facility] Stop: 11/21/24 16:29 Last Infusion: 11/11/24 18:06 Dose: Infused Heparin Sodium/Dextrose (Heparin 71430 Unit/500 Ml D5w) 25,000 units in 500 mls @ 15 mls/hr IV .Q24H [facility]; Protocol Stop: 12/12/24 04:29 Last Titration: 11/12/24 13:09 Dose: 750 units/hr, 15 mls/hr Isosorbide Mononitrate (Isosorbide Humphreys Extended Rel 30 Mg Tabcr) 30 mg PO [facility] Stop: 12/12/24 08:59 Last Admin: 11/12/24 07:56 Dose: 30 mg Labetalol HCl (Labetalol Hcl Iv 5 Mg/Ml 20ml) 5 mg IV Q6H PRN PRN Reason: Hypertension Stop: 12/11/24 14:41 Last Admin: 11/12/24 03:14 Dose: 5 mg Lactase (Lactase 3000 Unit Tab) 9,000 units PO DAILY PRN PRN Reason: W/ Dairy food Stop: 12/11/24 14:42 Last Admin: 11/12/24 07:55 Dose: 9,000 units Lactobacillus Acidophilus (Advanced Probiotic 625 Mg Capsule) 1,250 mg PO DAILY [facility] Stop: 12/12/24 08:59 Last Admin: 11/12/24 07:56 Dose: 1,250 mg Levothyroxine Sodium (Levothyroxine Sodium 75 Mcg Tablet) 75 mcg PO [id number] [facility] Stop: 12/11/24 14:44 Last Admin: 11/12/24 06:37 Dose: 75 mcg Lisinopril (Lisinopril 2.5 Mg Tab) 2.5 mg PO QAM [facility] Stop: 12/12/24 08:59 Last Admin: 11/12/24 07:56 Dose: 2.5 mg Miscellaneous (Order Awaiting Action (Estradiol 0.01 % (0.1 Mg/Gram) 1 each N/A QS [facility] Stop: 12/12/24 00:00 Last Admin: 11/12/24 14:59 Dose: Not Given Nitroglycerin (Nitroglycerin 2% Ointment 30gm Tube) 1 inch EXT Q6H [facility] Stop: 12/11/24 12:14 Last Admin: 11/12/24 11:31 Dose: 1 inch Ondansetron HCl (Ondansetron Inj 2 Mg/Ml 2 Ml Vial) 4 mg IV Q6H PRN PRN Reason: Nausea Stop: 12/11/24 14:22 Last Admin: 11/11/24 18:05 Dose: 4 mg Pantoprazole Sodium (Pantoprazole 40 Mg Tab) 40 mg PO QAM [facility] Stop: 12/12/24 08:59 Last Admin: 11/12/24 07:56 Dose: 40 mg Polyethylene Glycol (Polyethylene (Miralax) 17 Gm Pack) 17 gm PO DAILY PRN PRN Reason: Constipation Stop: 12/11/24 14:22 Sertraline HCl (Sertraline Hcl 50 Mg Tablet) 50 mg PO QPM [facility] Stop: 12/11/24 20:59 Last Admin: 11/11/24 20:10 Dose: 50 mg Sodium Bicarbonate (Sodium Bicarbonate 650 Mg Tab) 650 mg PO BID [facility] Stop: 12/11/24 20:59 Last Admin: 11/12/24 07:56 Dose: 650 mg PG Care Time/CCT Total # of Minutes Spent Total Time Spent with Patient: Total time spent is greater than 50% in coordination of care (as documented) at patient's floor/unit and/or counseling patient: 60 minutes Coding Level of Care Code 95875 INT INP/OBS CARE 3/75MIN Diagnoses NSTEMI (non-ST elevated myocardial infarction) I21.4 Acute respiratory distress R06.03 Hypertensive emergency I16.1 LV (left ventricular) mural thrombus I51.3 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
--- NOTE | 2024-11-12 16:28 | Hospitalist Progress Note ---
Date of Service November 12, 2024 Assessment & Plan (1) Hypoxia: Plan Acute on chronic heart failure with reduced ejection fraction: July 2024 ECHO w/ EF of 35-40%. Acute hypoxic respiratory failure ISO heart failure exacerbation Demand ischemia: Likely secondary to acute illness, above. Patient presents with acute shortness of breath, cough with clear sputum. Imaging CXR with pulmonary edema, BNP elevated than prior. Troponin minimally elevated, will trend. Patient denied chest pain. Patient was given IV Lasix in the ED and was able to be weaned down to from 15 L nonrebreather to 6 L nasal cannula oxygen. Patient reports feeling better after IV Lasix. Continue with diuresis, cardiology consult, repeat echo. Continue telemetry monitoring. 11/12 echocardiogram: EF 20 to 25%, small laminar apical thrombus currently on 2 L of O2 via nasal cannula continue Lasix 40 mg IV daily Continue heparin drip, plan to transition to Eliquis upon discharge evaluated by cardiology service discussed with patient and her daughter daughter at the bedside, prefers to continue with medical management only, no invasive or aggressive interventions at this point Abdominal pain, nausea, vomiting: possible iso acute illness, mild abd tender on exam. Will get CTAP, diet as tolerated. CT abdomen: Unrevealing Resolving Possible UTI: Patient complains of burning urine, start Rocephin, await urine analysis. urine culture: Gram-negative bacilli Continue ceftriaxone IV Hypertensive urgency: c/w home bp meds, now on increased diuretic dose, add prn bp meds. Other chronic medical conditions: Continue/resume home meds as and when able. NSTEMIcontinue home aspirin, Lipitor, carvedilol Hyperlipidemiacontinue home statin Hypertensioncontinue home Coreg, lisinopril, isosorbide. As needed blood pressure medications. DVT prophylaxis: Heparin DRIP CODE STATUS: DNR/DNI plan of care discussed with patient and her daughter Regina in detail and at length all questions answered they are understanding, agreeable, comfortable with the plan of care Admission and Anticipated Discharge Date Admission Date: November 11, 2024 Subjective Seen resting in bed, sitting up, on 2 L of nasal cannula Patient's daughter Paloma at the bedside visiting Patient states that she feels fine overall Breathing is somewhat improved Has occasional dry cough No chest pain, active shortness of breath, palpitations, dizziness Reports dysuria, lower abdominal discomfort but no fevers or chills No other new symptoms Review of Systems Review of Systems: all noted and negative except for above Physical Exam Physical Exam: General- oriented x 3, not in distress, speaks in sentences with no effort or accessory muscle use Eyes- anicteric Neck- no JVD Lungs-mild rales at the bases R>L Heart- normal rate, regular rhythm; no murmurs Abdomen- normal bowel sounds, nondistended, soft, nontender Extremities-grade 1 lower ext edema, no calf tenderness Neuro- alert, oriented x 3; no gross focal neurologic deficits Skin- warm & dry Results & Data Results & Data Vital Signs (Past 12 Hours) Vital Signs Temp Pulse Resp BP Pulse Ox O2 Del Method O2 Flow Rate 11/12/24 12:24 36.4 C L 76 18 143/66 H 95 Nasal Cannula 1 11/12/24 08:50 Nasal Cannula 2 11/12/24 08:12 36.4 C L 85 20 100 Nasal Cannula 4 11/12/24 07:50 154/80 H all noted and reviewed including below
[2024-11-12 19:08] LABS: ANTI-Xa, UFH(UnfractionatedHep 0.69 IU/ml (0.3-0.7)
[2024-11-13 06:29] LABS: ANTI-Xa, UFH(UnfractionatedHep 0.66 IU/ml (0.3-0.7)
[2024-11-13 08:54] LABS: Hematocrit (blood only) 28.1 % (37.0-47.0); Hemoglobin 9.1 g/dl (12.0-16.0); Immature Granulocytes # (auto) 0.03 K/uL (0.01-0.20); Immature Granulocytes % (auto) 0.4 %; Mean Corpuscular Hemoglobin 31.0 pg (25.0-34.0); Mean Corpuscular Volume 95.6 fL (80.0-100.0); Platelet Count 118 K/uL (130-400); RDW Standard Deviation 50.3 fL (36.4-46.3); Red Blood Count 2.94 M/uL (4.20-5.40); White Blood Count 7.02 K/ul (4.8-10.8)
[2024-11-13] MEDS: ESTRACE VAG CREAM 0.01% 42.5 GM PV SCH (08:58)
--- NOTE | 2024-11-13 12:16 | Cardiology Progress Note ---
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 Respiratory status/hypoxia/HFrEF improving with IV lasix - -Continue Furosemide 40 mg IV -Monitor I+O's -Monitor renal function and electrolytes -update BMP this morning given IV diuretics. NSTEMI with new LV thrombus -EKG with LBBB (previously had incomplete LBBB/widened QRS) -LVEF 20-25%, which is a decline from July 2024 echo at 35% -Elevated troponin at 2500 -Continue IV heparin for 48 hours - Monitor hbg. Dropped form 11.8 to 9.1. -Continue ASA, statin, carvedilol, isosorbide/nitro oint, and lisinopril. -Patient currently chest pain free -given advanced age and comorbidities - conservative therapies recommended LV thrombus noted on echo -Continue IV heparin for 48 hours. If Hbg drops further, may need to stop heparin -transition to oral low dose Eliquis 2.5 mg BID prior to discharge Conservative med management recommended for NSTEMI, HFrEF. Consider palliative care/hospice. Case discussed with Dr. Cleveland I spent a total of 40 minutes on the date of service in preparation, delivery, and documentation of the care provided to this patient, excluding any time spent in the performance of separately billed services. Jennifer Garces PA-C Department of Cardiology, [facility] This chart was completed in part utilizing Speech Voice Recognition Software. Grammatical errors, random word insertions, pronoun errors, and incomplete sentences are an occasional consequence of this system due to software limitations, ambient noise, and hardware issues. Any formal questions or concerns about the content, text, or information contained within the body of this dictation should be directly addressed to the provider for clarification. Admission and Anticipated Discharge Date Admission Date: November 11, 2024 Supervising Physician Co-Signing Physician Notes I have personally performed a history and physical examination on the patient. I have reviewed the advance practitioner's documentation, and I agree with, and take responsibility for the plan of care. 89-year-old female with NSTEMI, acute on chronic heart failure with reduced ejection fraction, and evidence of apical LV thrombus on echocardiogram. Conservative management recommended. Agree with palliative care consultation. Continue IV heparin x 48 hours. Family agreeable to reduce dose of Eliquis for treatment of LV apical thrombus. Elevated creatinine this a.m. Hold Lasix pending review of labs 11/14/2024. Transition to oral Lasix in the next 24 to 48 hours. Monitor fluid balance, daily weight, GFR, and electrolyte. Continue other cardiovascular medications including aspirin, statin, carvedilol, isosorbide, and lisinopril. Monitor hemoglobin daily. All questions answered satisfaction of both daughters at bedside. Cristobal Cleveland DO, [facility] I spent a total of 30 minutes on the date of service in preparation, delivery, and documentation of the care provided to this patient, excluding any time spent in the performance of separately billed services. Subjective Patient resting in bed. No family at bedside. She reports she is feeling better than yesterday. SOB improving. She denies chest pain. Review of Systems Review of Systems: All systems reviewed & are unremarkable except as noted in HPI & below Physical Exam Constitutional: + ill appearing and + thin; no acute dis tress Neck: normal visual inspection Respiratory: + cough Auscultation: + crackles Cardiovascular: Rate/Rhythm: regular rate and regular rhythm Heart Sounds: + murmur (II/ systolic murmur) Gastrointestinal (Abdomen): normal bowel sounds, soft, nontender, no hepatosplenomegaly Neurologic: PERRL, EOMI, accommodation nl, no face palsy, no dysarthria Results & Data Vital Signs (Past 12 Hours) Vital Signs Temp Pulse Resp BP BP Pulse Ox O2 Del Method 11/13/24 11:27 36.7 C 68 16 124/65 98 Nasal Cannula 11/13/24 09:30 Nasal Cannula 11/13/24 07:22 36.7 C 72 16 127/68 98 Nasal Cannula 11/13/24 04:17 36.6 C 67 18 106/62 97 Room Air O2 Flow Rate 11/13/24 11:27 2 11/13/24 09:30 2 11/13/24 07:22 2 11/13/24 04:17 Laboratory Results CBC 11/13/24 Range/Units 05:56 WBC 7.02 (4.8-10.8) K/ul RBC 2.94 L (4.20-5.40) M/uL Hgb 9.1 L (12.0-16.0) g/dl Hct 28.1 L (37.0-47.0) % Plt Count 118 L (130-400) K/uL Neut # (Auto) 4.56 (1.40-6.50) K/uL Lymph # (Auto) 1.33 (1.20-3.40) K/uL Tift # (Auto) 0.87 H (0.11-0.59) K/uL Eos # (Auto) 0.20 (0.00-0.50) K/uL Baso # (Auto) 0.03 (0.00-0.20) K/uL Intake and Output 11/12/24 11/13/24 11/13/24 22:59 06:59 14:59 Intake Total 141.00 / 885.317 200.5 / 885.317 Output Total 100 / 500 300 / 500 Balance 41.00 / 385.317 -99.5 / 385.317 Intake: IV 141.00 / 435.317 170.5 / 435.317 Heparin 30903 Unit/500 ml D5w 91.00 / 385.317 170.5 / 385.317 25,000 units In 500 ml @ 750 UNITS/HR 15 mls/hr IV .Q24H [facility] Rx#:[id number] cefTRIAXone SODIUM 2,000 mg In 50 / 50 50 ml @ 100 mls/hr IV Q24H [facility] Rx#:[id number] Oral 30 / 450 Output: Urine Amount (Catheter) 100 / 400 300 / 400 External 100 / 400 300 / 400 Other: Other Intake Source sips Weight 54.1 kg Weight Measurement Method [facility] Diagnostic Findings Telemetry reviewed: NSR in the 60-70's Medications Administered Current Inpatient Medications Acetaminophen (Acetaminophen 325 Mg Tab) 650 mg PO Q4H PRN PRN Reason: Pain or Fever Stop: 12/11/24 14:22 Last Admin: 11/12/24 05:11 Dose: 650 mg Al Hydrox/Mg Hydrox/Simethicone (Aluminum/Magnesium Susp 30 Ml Udc) 15 ml PO Q4H PRN PRN Reason: Dyspepsia Stop: 10/03/25 14:22 Aspirin (Aspirin 81 Mg Chew) 81 mg PO DAILY [facility] Stop: 12/12/24 08:59 Last Admin: 11/13/24 09:01 Dose: 81 mg Atorvastatin Calcium (Atorvastatin 20 Mg Tab) 20 mg PO QAM [facility] Stop: 12/12/24 08:59 Last Admin: 11/13/24 08:57 Dose: 20 mg Bimatoprost (Bimatoprost 0.01% Op Soln 2.5 Ml Btl) 1 drops OPB [facility] Stop: 12/11/24 20:59 Last Admin: 11/12/24 20:21 Dose: 1 drops Carvedilol (Carvedilol 6.25 Mg Tab) 6.25 mg PO BIDM [facility] Stop: 12/11/24 16:59 Last Admin: 11/13/24 08:57 Dose: 6.25 mg Dorzolamide/Timolol (Dorzolamide/Timolol 22.3/6.8mg/Ml 10 Ml Btl) 1 drops OPB [facility] Stop: 12/12/24 08:59 Last Admin: 11/13/24 08:56 Dose: 1 drops Estradiol (Estrace Vag Cream 0.01% 42.5 Gm) 1 appln PV TuFr@0900 [facility] Stop: 12/13/24 08:59 Last Admin: 11/13/24 08:58 Dose: 1 gm Famotidine (Famotidine 20 Mg Tab) 20 mg PO [facility] Stop: 12/11/24 20:59 Last Admin: 11/12/24 20:25 Dose: 20 mg Furosemide (Furosemide 40 Mg/4 Ml Vial) [facility] Stop: 12/12/24 08:59 Last Admin: 11/13/24 09:01 Dose: 40 mg Ceftriaxone Sodium (Rocephin) 2,000 mg in 50 mls @ 100 mls/hr IV Q24H [facility] Stop: 11/21/24 16:29 Last Infusion: 11/12/24 17:02 Dose: Infused Heparin Sodium/Dextrose (Heparin 99091 Unit/500 Ml D5w) 25,000 units in 500 mls @ 15 mls/hr IV .Q24H [facility]; Protocol Stop: 12/12/24 04:29 Last Admin: 11/13/24 10:20 Dose: Not Given Isosorbide Mononitrate (Isosorbide Tift Extended Rel 30 Mg Tabcr) 30 mg PO QAM [facility] Stop: 12/12/24 08:59 Last Admin: 11/13/24 08:57 Dose: 30 mg Labetalol HCl (Labetalol Hcl Iv 5 Mg/Ml 20ml) 5 mg IV Q6H PRN PRN Reason: Hypertension Stop: 12/11/24 14:41 Last Admin: 11/12/24 03:14 Dose: 5 mg Lactase (Lactase 3000 Unit Tab) 9,000 units PO DAILY PRN PRN Reason: W/ Dairy food Stop: 12/11/24 14:42 Last Admin: 11/12/24 07:55 Dose: 9,000 units Lactobacillus Acidophilus (Advanced Probiotic 625 Mg Capsule) 1,250 mg PO DAILY [facility] Stop: 12/12/24 08:59 Last Admin: 11/13/24 08:57 Dose: 1,250 mg Levothyroxine Sodium (Levothyroxine Sodium 75 Mcg Tablet) 75 mcg PO [id number]@0630 [facility] Stop: 12/11/24 14:44 Last Admin: 11/13/24 06:07 Dose: 75 mcg Lisinopril (Lisinopril 2.5 Mg Tab) 2.5 mg PO QAM [facility] Stop: 12/12/24 08:59 Last Admin: 11/13/24 08:57 Dose: 2.5 mg Ondansetron HCl (Ondansetron Inj 2 Mg/Ml 2 Ml Vial) 4 mg IV Q6H PRN PRN Reason: Nausea Stop: 12/11/24 14:22 Last Admin: 11/11/24 18:05 Dose: 4 mg Pantoprazole Sodium (Pantoprazole 40 Mg Tab) 40 mg PO QAM [facility] Stop: 12/12/24 08:59 Last Admin: 11/13/24 08:57 Dose: 40 mg Polyethylene Glycol (Polyethylene (Miralax) 17 Gm Pack) 17 gm PO DAILY PRN PRN Reason: Constipation Stop: 12/11/24 14:22 Sertraline HCl (Sertraline Hcl 50 Mg Tablet) 50 mg PO QPM [facility] Stop: 12/11/24 20:59 Last Admin: 11/12/24 20:25 Dose: 50 mg Sodium Bicarbonate (Sodium Bicarbonate 650 Mg Tab) 650 mg PO BID [facility] Stop: 12/11/24 20:59 Last Admin: 11/13/24 08:57 Dose: 650 mg PG Care Time/CCT Total # of Minutes Spent Total Time Spent with Patient: Total time spent is greater than 50% in coordination of care (as documented) at patient's floor/unit and/or counseling patient: 40 minutes Coding Level of Care Code 95606 SUB INP/OBS CARE 3/50MIN Diagnoses NSTEMI (non-ST elevated myocardial infarction) I21.4 Acute respiratory distress R06.03 Hypertensive emergency I16.1 LV (left ventricular) mural thrombus I51.3 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
--- NOTE | 2024-11-13 12:25 | Palliative Care Consultation ---
Date of Consultation November 13, 2024 Assessment & Plan (1) Dyspnea and respiratory abnormalities: We agreed to a trial of low-dose morphine elixir 2.5 mg by mouth or sublingual every 4 hours as needed. Given her CKD, escalation of morphine will be in a more controlled manner and frequent dosing as needed a trial of Duragesic 12.5 mcg every 72 hours would be reasonable. Additionally we have added low-dose Ativan 0.5 mg orally every 8 8 hours if needed for relief of anxiety, nausea or insomnia (2) Weakness generalized: (3) Advanced care planning/counseling discussion: A 60-minute [id number] advance care planning was held at the bedside with Kathy and 2 daughter: Regina is her POA and a retired nurse and the POA. They indicate a desire to transition to a focus that is about quality of life and avoid return to the hospital. Patient states that she is aware if her heart failure is at its terminal status. She is thankful for the care and support she has at the [facility] and would like to return there for ongoing management. Her daughter, Regina, at the bedside, is her POA. Daughter would like the addition of hospice and notes that when she stopped by the [facility] to speak with the deputy director of nursing today, she was advised that they have partnered well on prior cases with [facility] and so daughter would like for [facility] to be engaged in her mother's care when she returns to the [facility]. We discussed the scope of hospice benefits: I provided education about the hospice benefit: an interdisciplinary program offered by nurses, nurses aides, social workers, chaplains and a certified court/medical interpreter for patients with a terminal condition and a life expectancy of less than 6 months. This is covered by Medicare at 100%/no out of pocket expense to patient and all meds/supplies needed by patient for the reason they are on hospice are paid for/covered by hospice. The goal is assure quality of life of the patient in their home setting (home, intermediate, inpatient hospice setting) by providing symptoms management, psychosocial and spiritual support. However, they cannot offer 24 hours care and if the family is unable to provide that care, they will have to consider personal care with out of pocket cost vs. intermediate placement. We discussed the goals of hospice as a patient service and the goals of care; we discussed EOL trajectories and transitions kayode the emotional impact of realizing mortality as a concrete reality from prior abstract considerations. Pt was reassured that no matter where they are along this trajectory, they are not alone - their medical team will remain by their side through their journey. Discussed the pros/cons of accepting help when especially weakened and distressed by pain-which would also help provide relief/decrease caregiver burden/strain. They would like return to [facility] once medically stable with [facility]. Tala from [facility] was in house seeing a patient of mine so I asked her to come meet with the family since she was already here and they had questions about the scope of services and how they work with the [facility] staff. They would like some prn meds for symptom mgt added for pt to try through weekend. Incidentally, i think pt may have pink eye bilaterally - there is redness, swelling, injection and crusting/mucoid, so i am going to order opthalmic rx to treat this while she is here. Message sent at 2:26 PM. 10 days left (4) Palliative care by specialist: Introduced Palliative Medicine and explained our role in patient's care. Patient and/or family were receptive to palliative services for goals of care discussions. Reviewed we are different from hospice, a home health nurse visiting service. Plan As above Thank you for allowing us to participate in the ongoing care of this patient. Please page with any additional concerns. Dwight Inman DNP Director, Palliative Medicine History of Present Illness Reason for Consultation: On 11/12/24 @ 15:55 Will Lujan Wrote To [place] cardiomyopathy Attending Physician: Will Lujan MD History of Present Illness Kathy is 89yo and admitted with acute dyspnea and cough/clear sputum CXR + pulm edema and BNP elevated higher than prior Admitted for HFrEF and NSTEMI with hypertensive urgency + acute on chronic HFrEF/July 2024 ECHO w/ EF of 35-40%. + acute hypoxic respiratory failure ISO heart failure exacerbation + demand ischemia: Likely secondary to acute illness, above. 11/12/24: echo --> EF 20 to 25%, small laminar apical thrombus EKG with LBBB (previously had incomplete LBBB/widened QRS) given advanced age and comorbidities - conservative therapies recommended Kathy is a resident of [facility]; at her baseline, +walker and trends mealtimes in their dining areas.[facility] staff assist w/ADLs prn. She 'graduated" from PT at the [facility] She is seen at bedside with 2 of her 4 daughters. Her daughter Regina, present at bedside today, is a retired nurse. Allergies Allergy/AdvReac Type Severity Reaction Status Date / Time Sulfa (Sulfonamide Allergy Intermediate RASH Verified 11/11/24 13:39 Antibiotics) Iodinated Contrast Media AdvReac Unknown NOT TO USE Verified 11/11/24 13:39 DUE TO KIDNEY FAILURE Home Medications Medication Instructions Recorded Confirmed Type atorvastatin 20 mg tablet 20 mg PO QAM 07/30/24 11/11/24 History bimatoprost 0.01 % eye drops 1 drp ophthalmic (eye) HS 07/30/24 11/11/24 History ([place]) dorzolamide 22.3 mg-timolol 6.8 1 drp OPB QAM 07/30/24 11/11/24 History mg/mL eye drops furosemide 20 mg tablet 10 mg PO QAM 07/30/24 11/11/24 History levothyroxine 75 mcg tablet 75 mcg PO 6XWK 07/30/24 11/11/24 History lisinopril 2.5 mg tablet 2.5 mg PO QAM 07/30/24 11/11/24 History omeprazole 20 mg tablet,delayed 20 mg PO QAM 07/30/24 11/11/24 History release sertraline 50 mg tablet 50 mg PO QPM 07/30/24 11/11/24 History carvedilol 6.25 mg tablet 6.25 mg PO BIDM #60 tabs 08/05/24 11/11/24 Rx isosorbide mononitrate 30 mg 30 mg PO QAM #30 tabs 08/05/24 11/11/24 Rx tablet,extended release 24 hr acetaminophen 325 mg tablet 650 mg PO Q4H PRN Pain 11/11/24 11/11/24 History acetaminophen 500 mg tablet 1,000 mg PO BID PRN Pain 11/11/24 11/11/24 History aspirin 81 mg chewable tablet 81 mg PO DAILY 11/11/24 11/11/24 History estradiol 0.01% (0.1 mg/gram) 1 g vaginal 2XWK 11/11/24 11/11/24 History vaginal cream famotidine 20 mg tablet 20 mg PO HS 11/11/24 11/11/24 History lactase 3,000 unit tablet (Lactaid) 9,000 unit PO DAILY PRN W/ Dairy 11/11/24 11/11/24 History food loperamide 2 mg capsule (Imodium 2 mg PO TID PRN Diarrhea 11/11/24 11/11/24 History A-D) [id number] acid 0.4 1 tab PO 3XWK 11/11/24 11/11/24 History mg-lycopene 300 mcg-lutein 250 mcg tablet (Centrum Silver) ondansetron HCl 4 mg tablet 4 mg PO Q6H PRN Nausea And Vomiting 11/11/24 11/11/24 History sodium bicarbonate 650 mg tablet 650 mg PO BID 11/11/24 11/11/24 History Patient History Medical History Hypertension Surgical History No pertinent past surgical history Social History Smoking Status: Never smoker Hx Alcohol Use: No Hx Substance Use: No Preferred Language: Argentine Communication Ability: Effective [employer]er Required: No Beliefs That Will Affect Care: None Current Living Situation: Personal Care Facility and Other current occupational status: retired Other Information That Helps Us Care for You: No Feels Safe at Home: Yes Safety Concerns: Feels Safe At This Time Assistive Devices: Walker Review of Systems Review of Systems: See HPI Physical Exam Physical Exam: Frail elderly female, semireclined in bed, mild respiratory distress noted. There is bitemporal wasting. Pupils are equal and reactive to light. Extraocular movements are intact. There is erythema with mild injection around the eyes bilaterally with some crusting of mucoid discharge noted bilaterally. Vision is intact per patient but she has been rubbing her eyes and feeling them get progressively itchier over the last few days. Dentition is fair mucosas slightly dry. Neck is supple, without stridor and no thyromegaly. She has an intermittent dry cough. She has crackles bilaterally. Her heart is S1-S2 with a murmur which is approximately grade 2-3 systolic. Abdomen is scaphoid, nontender, bowel sounds are present. There is generalized weakness. She is then and cachectic appearing. Skin is pale and cool to touch with a few scattered ecchymoses. She is awake alert and oriented x 3 Results & Data Vital Signs (Past 12 Hours) Vital Signs Temp Pulse Resp BP BP Pulse Ox O2 Del Method 11/13/24 11:27 36.7 C 68 16 124/65 98 Nasal Cannula 11/13/24 09:30 Nasal Cannula 11/13/24 07:22 36.7 C 72 16 127/68 98 Nasal Cannula 11/13/24 04:17 36.6 C 67 18 106/62 97 Room Air O2 Flow Rate 11/13/24 11:27 2 11/13/24 09:30 2 11/13/24 07:22 2 11/13/24 04:17 Laboratory Results 11/13/24 11/13/24 11/12/24 Range/Units 05:56 05:53 18:03 WBC 7.02 (4.8-10.8) K/ul RBC 2.94 L (4.20-5.40) M/uL Hgb 9.1 L (12.0-16.0) g/dl Hct 28.1 L (37.0-47.0) % MCV 95.6 (80.0-100.0) fL MCH 31.0 (25.0-34.0) pg MCHC 32.4 (32.0-36.0) g/dL RDW Std Deviation 50.3 H (36.4-46.3) fL RDW Coeff of Amanda 14.6 H (11.5-14.5) % Plt Count 118 L (130-400) K/uL MPV 11.1 (9.4-12.4) fL Immature Gran % (Auto) 0.4 % Neut % (Auto) 65.1 % Lymph % (Auto) 18.9 % [place] % (Auto) 12.4 % Eos % (Auto) 2.8 % Baso % (Auto) 0.4 % Neut # (Auto) 4.56 (1.40-6.50) K/uL Lymph # (Auto) 1.33 (1.20-3.40) K/uL [place] # (Auto) 0.87 H (0.11-0.59) K/uL Eos # (Auto) 0.20 (0.00-0.50) K/uL Baso # (Auto) 0.03 (0.00-0.20) K/uL Immature Gran # (Auto) 0.03 (0.01-0.20) K/uL PT (9.0-12.0) Seconds INR (0.9-1.1) APTT (21-31) Seconds PTT Ratio Heparin Anti-Xa, Unfract 0.66 0.69 (0.3-0.7) IU/ml Sodium (136-145) mmol/L Potassium (3.5-5.1) mmol/L Chloride (98-107) mmol/L Carbon Dioxide (21-32) mmol/L Anion Gap (3-11) BUN (6-23) mg/dl Creatinine (0.6-1.2) mg/dl Est Cr Clr Drug Dosing eGFR BUN/Creatinine Ratio (10-20) Glucose (70-99(Fasting)) mg/dl Calcium (8.6-10.3) mg/dl Phosphorus (2.5-4.9) mg/dl Magnesium 2.1 (1.7-2.4) mg/dl Total Bilirubin (0.2-1.0) mg/dl AST (13-39) U/L ALT (7-52) U/L Alkaline Phosphatase (34-104) U/L Troponin I High Sens (0-14) pg/ml B-Natriuretic Peptide (0-100) pg/ml Total Protein (6.0-8.3) gm/dl Albumin (3.4-5.0) gm/dl Globulin (2.5-4.0) gm/dl Albumin/Globulin Ratio (0.9-2) Procalcitonin (0-0.5) ng/ml Urine Color Urine Appearance (Clear) Urine pH (4.5-7.5) Ur Specific Capac (1.000-1.030) Urine Protein (Negative) Urine Glucose (UA) (Negative) Urine Ketones (Negative) Urine Blood (Negative) Urine Nitrite (Negative) Urine Bilirubin (Negative) Urine Urobilinogen (Negative) Ur Leukocyte Esterase (Negative) Urine RBC (0-2) /hpf Urine WBC (0-5) /hpf Ur Epithelial Cells (0-2) /hpf Urine Bacteria (None Seen) Urine Mucus (None Prsent) Urine Comment SARS-CoV-2 (PCR) (Negative) Influenza Type A (PCR) (Neg) Influenza Type B (PCR) (Neg) RSV (RT-PCR) (Neg) 11/12/24 11/12/24 11/12/24 Range/Units 11:00 09:04 05:00 WBC 13.02 H (4.8-10.8) K/ul RBC 3.89 L (4.20-5.40) M/uL Hgb 11.8 L (12.0-16.0) g/dl Hct 37.7 (37.0-47.0) % MCV 96.9 (80.0-100.0) fL MCH 30.3 (25.0-34.0) pg MCHC 31.3 L (32.0-36.0) g/dL RDW Std Deviation 49.7 H (36.4-46.3) fL RDW Coeff of Amanda 14.3 (11.5-14.5) % Plt Count 183 (130-400) K/uL MPV 9.9 (9.4-12.4) fL Immature Gran % (Auto) 0.8 % Neut % (Auto) 87.4 % Lymph % (Auto) 6.6 % [place] % (Auto) 5.0 % Eos % (Auto) 0.0 % Baso % (Auto) 0.2 % Neut # (Auto) 11.37 H (1.40-6.50) K/uL Lymph # (Auto) 0.86 L (1.20-3.40) K/uL [place] # (Auto) 0.65 H (0.11-0.59) K/uL Eos # (Auto) 0.00 (0.00-0.50) K/uL Baso # (Auto) 0.03 (0.00-0.20) K/uL Immature Gran # (Auto) 0.11 (0.01-0.20) K/uL PT 10.9 (9.0-12.0) Seconds INR 1.0 (0.9-1.1) APTT 30 (21-31) Seconds PTT Ratio 1.1 Heparin Anti-Xa, Unfract 0.81 H* (0.3-0.7) IU/ml Sodium 144 (136-145) mmol/L Potassium 4.6 (3.5-5.1) mmol/L Chloride 108 H (98-107) mmol/L Carbon Dioxide 25 (21-32) mmol/L Anion Gap 11 (3-11) BUN 47 H (6-23) mg/dl Creatinine 2.04 H (0.6-1.2) mg/dl Est Cr Clr Drug Dosing 13.4 eGFR 22.89 BUN/Creatinine Ratio 23.0 H (10-20) Glucose 135 H (70-99(Fasting)) mg/dl Calcium 9.7 (8.6-10.3) mg/dl Phosphorus 6.0 H (2.5-4.9) mg/dl Magnesium 2.3 (1.7-2.4) mg/dl Total Bilirubin (0.2-1.0) mg/dl AST (13-39) U/L ALT (7-52) U/L Alkaline Phosphatase (34-104) U/L Troponin I High Sens 2686.4 H* (0-14) pg/ml B-Natriuretic Peptide (0-100) pg/ml Total Protein (6.0-8.3) gm/dl Albumin (3.4-5.0) gm/dl Globulin (2.5-4.0) gm/dl Albumin/Globulin Ratio (0.9-2) Procalcitonin (0-0.5) ng/ml Urine Color Urine Appearance (Clear) Urine pH (4.5-7.5) Ur Specific Capac (1.000-1.030) Urine Protein (Negative) Urine Glucose (UA) (Negative) Urine Ketones (Negative) Urine Blood (Negative) Urine Nitrite (Negative) Urine Bilirubin (Negative) Urine Urobilinogen (Negative) Ur Leukocyte Esterase (Negative) Urine RBC (0-2) /hpf Urine WBC (0-5) /hpf Ur Epithelial Cells (0-2) /hpf Urine Bacteria (None Seen) Urine Mucus (None Prsent) Urine Comment SARS-CoV-2 (PCR) (Negative) Influenza Type A (PCR) (Neg) Influenza Type B (PCR) (Neg) RSV (RT-PCR) (Neg) 11/12/24 11/11/24 11/11/24 Range/Units 03:08 19:56 18:10 WBC (4.8-10.8) K/ul RBC (4.20-5.40) M/uL Hgb (12.0-16.0) g/dl Hct (37.0-47.0) % MCV (80.0-100.0) fL MCH (25.0-34.0) pg MCHC (32.0-36.0) g/dL RDW Std Deviation (36.4-46.3) fL RDW Coeff of Amanda (11.5-14.5) % Plt Count (130-400) K/uL MPV (9.4-12.4) fL Immature Gran % (Auto) % Neut % (Auto) % Lymph % (Auto) % [place] % (Auto) % Eos % (Auto) % Baso % (Auto) % Neut # (Auto) (1.40-6.50) K/uL Lymph # (Auto) (1.20-3.40) K/uL [place] # (Auto) (0.11-0.59) K/uL Eos # (Auto) (0.00-0.50) K/uL Baso # (Auto) (0.00-0.20) K/uL Immature Gran # (Auto) (0.01-0.20) K/uL PT (9.0-12.0) Seconds INR (0.9-1.1) APTT (21-31) Seconds PTT Ratio Heparin Anti-Xa, Unfract (0.3-0.7) IU/ml Sodium (136-145) mmol/L Potassium (3.5-5.1) mmol/L Chloride (98-107) mmol/L Carbon Dioxide (21-32) mmol/L Anion Gap (3-11) BUN (6-23) mg/dl Creatinine (0.6-1.2) mg/dl Est Cr Clr Drug Dosing eGFR BUN/Creatinine Ratio (10-20) Glucose (70-99(Fasting)) mg/dl Calcium (8.6-10.3) mg/dl Phosphorus (2.5-4.9) mg/dl Magnesium (1.7-2.4) mg/dl Total Bilirubin (0.2-1.0) mg/dl AST (13-39) U/L ALT (7-52) U/L Alkaline Phosphatase (34-104) U/L Troponin I High Sens 2501.7 H* D 1014.2 H* D (0-14) pg/ml B-Natriuretic Peptide (0-100) pg/ml Total Protein (6.0-8.3) gm/dl Albumin (3.4-5.0) gm/dl Globulin (2.5-4.0) gm/dl Albumin/Globulin Ratio (0.9-2) Procalcitonin (0-0.5) ng/ml Urine Color Yellow Urine Appearance Clear (Clear) Urine pH 5.5 (4.5-7.5) Ur Specific Capac 1.015 (1.000-1.030) Urine Protein 2+ H (Negative) Urine Glucose (UA) Negative (Negative) Urine Ketones Negative (Negative) Urine Blood 1+ H (Negative) Urine Nitrite Negative (Negative) Urine Bilirubin Negative (Negative) Urine Urobilinogen Negative (Negative) Ur Leukocyte Esterase 2+ H (Negative) Urine RBC 3-5 H (0-2) /hpf Urine WBC 21-50 H (0-5) /hpf Ur Epithelial Cells 0-2 (0-2) /hpf Urine Bacteria 3+ H (None Seen) Urine Mucus Present A (None Prsent) Urine Comment SARS-CoV-2 (PCR) (Negative) Influenza Type A (PCR) (Neg) Influenza Type B (PCR) (Neg) RSV (RT-PCR) (Neg) 11/11/24 11/11/24 11/11/24 Range/Units 14:20 12:05 12:00 WBC 11.61 H (4.8-10.8) K/ul RBC 3.76 L (4.20-5.40) M/uL Hgb 11.5 L (12.0-16.0) g/dl Hct 36.2 L (37.0-47.0) % MCV 96.3 (80.0-100.0) fL MCH 30.6 (25.0-34.0) pg MCHC 31.8 L (32.0-36.0) g/dL RDW Std Deviation 50.4 H (36.4-46.3) fL RDW Coeff of Amanda 14.5 (11.5-14.5) % Plt Count 217 (130-400) K/uL MPV 10.3 (9.4-12.4) fL Immature Gran % (Auto) 0.7 % Neut % (Auto) 58.3 % Lymph % (Auto) 30.0 % [place] % (Auto) 8.1 % Eos % (Auto) 2.6 % Baso % (Auto) 0.3 % Neut # (Auto) 6.77 H (1.40-6.50) K/uL Lymph # (Auto) 3.48 H (1.20-3.40) K/uL [place] # (Auto) 0.94 H (0.11-0.59) K/uL Eos # (Auto) 0.30 (0.00-0.50) K/uL Baso # (Auto) 0.04 (0.00-0.20) K/uL Immature Gran # (Auto) 0.08 (0.01-0.20) K/uL PT (9.0-12.0) Seconds INR (0.9-1.1) APTT (21-31) Seconds PTT Ratio Heparin Anti-Xa, Unfract (0.3-0.7) IU/ml Sodium 142 (136-145) mmol/L Potassium 4.2 (3.5-5.1) mmol/L Chloride 108 H (98-107) mmol/L Carbon Dioxide 26 (21-32) mmol/L Anion Gap 8 (3-11) BUN 40 H (6-23) mg/dl Creatinine 1.77 H (0.6-1.2) mg/dl Est Cr Clr Drug Dosing Not Reportable eGFR 27.14 BUN/Creatinine Ratio 22.6 H (10-20) Glucose 228 H (70-99(Fasting)) mg/dl Calcium 9.6 (8.6-10.3) mg/dl Phosphorus (2.5-4.9) mg/dl Magnesium (1.7-2.4) mg/dl Total Bilirubin 0.4 (0.2-1.0) mg/dl AST 20 (13-39) U/L ALT 15 (7-52) U/L Alkaline Phosphatase 64 (34-104) U/L Troponin I High Sens 166.2 H* D 61.4 H* (0-14) pg/ml B-Natriuretic Peptide 1495 H (0-100) pg/ml Total Protein 7.3 (6.0-8.3) gm/dl Albumin 3.8 (3.4-5.0) gm/dl Globulin 3.5 (2.5-4.0) gm/dl Albumin/Globulin Ratio 1.1 (0.9-2) Procalcitonin 0.02 (0-0.5) ng/ml Urine Color Urine Appearance (Clear) Urine pH (4.5-7.5) Ur Specific Capac (1.000-1.030) Urine Protein (Negative) Urine Glucose (UA) (Negative) Urine Ketones (Negative) Urine Blood (Negative) Urine Nitrite (Negative) Urine Bilirubin (Negative) Urine Urobilinogen (Negative) Ur Leukocyte Esterase (Negative) Urine RBC (0-2) /hpf Urine WBC (0-5) /hpf Ur Epithelial Cells (0-2) /hpf Urine Bacteria (None Seen) Urine Mucus (None Prsent) Urine Comment SARS-CoV-2 (PCR) NEGATIVE (Negative) Influenza Type A (PCR) Negative (Neg) Influenza Type B (PCR) Negative (Neg) RSV (RT-PCR) Negative (Neg) Diagnostic Findings Chest X-Ray 11/11/24 12:11 XR chest 1V portable HISTORY: 89 years-old Female Dyspnea COMPARISON: 07/31/2024, 07/30/2024. TECHNIQUE: AP view of the chest FINDINGS: Cardiac silhouette is enlarged. There is no pneumothorax. Probable trace pleural effusions. Probable hiatal hernia. Diffuse interstitial coarsening is again noted with ill-defined right midlung and right basilar airspace opacities redemonstrated, not significantly similar to the July 2024 exams. Bones appear grossly intact. IMPRESSION: 1. Cardiomegaly with mixed interstitial and alveolar opacities redemonstrated, similar to the July 2024 exams. Differential considerations include asymmetric pulmonary edema versus multifocal pneumonia. 2. Probable trace pleural effusions. ACT 112: Negative or not required by law. The above report was generated using voice recognition software. It may contain grammatical, syntax or spelling errors. Electronically signed by: Phillip Nicole M.D. 11/11/2024 1:29 PM Abdomen/Pelvis CT 11/11/24 14:19 CT SCAN OF THE ABDOMEN AND PELVIS WITHOUT IV CONTRAST CLINICAL HISTORY: Generalized abdominal pain. COMPARISON STUDY: No priors TECHNIQUE: CT scan of the abdomen and pelvis is performed from the lung bases to the proximal femora. Images are reviewed in the axial, sagittal, and coronal planes. IV contrast was not administered for this examination. Note that the examination was performed in suboptimal fashion without oral and IV contrast. There is streak artifact from the arms which could not be elevated above the abdomen as well as motion artifact. A dose lowering technique was utilized adhering to the principles of ALARA. CT DOSE: 601.63 mGy.cm FINDINGS: Lung bases: The heart is enlarged and without pericardial effusion. The coronary arteries are densely calcified. There is a moderate hiatal hernia. There are small pleural effusions with dependent consolidation. Milder groundglass opacities are seen in the right lower lung and there is diffuse intralobular septal thickening. Liver: The unenhanced liver is normal in size, contour, and attenuation. There is mild central intrahepatic biliary ductal dilatation. Gallbladder: Surgically absent noting clips in the gallbladder fossa. Spleen: Normal in size and attenuation. Pancreas: The unenhanced pancreas is moderately atrophic and grossly unremarkable. Adrenal glands: Unremarkable. Kidneys: The unenhanced kidneys are atrophic and without hydronephrosis. There are no renal calculi identified. There is no evidence of contour deforming renal mass lesion. Abdominal vasculature: There is advanced atherosclerotic calcification and mild ectasia of the abdominal aorta. Bowel: There is retrosigmoid fecal retention. No bowel obstruction is seen. There is diverticulosis of the sigmoid colon without CT evidence of acute diver ticulitis. The appendix is well-visualized and normal. Peritoneum: There is no intraperitoneal free air or abdominal ascites. Lymphadenopathy: None. Pelvic viscera: The bladder is mildly distended but otherwise normal as imaged. The uterus is surgically absent. No adnexal lesion is seen. A right inguinal hernia contains nonobstructed small bowel loops. There is a fat-containing inguinal hernia on left. Skeletal structures: The skeletal structures are osteopenic. There is moderate to advanced lumbosacral spondylosis and moderate scoliosis. No lytic or blastic lesions are seen. There are chronic/healed left-sided rib fractures. Soft tissues: There is mild body wall edema. IMPRESSION: 1. Suboptimal examination without oral and IV contrast. There is also streak and motion artifact. 2. Cardiomegaly with evidence of congestive failure. 3. There are small pleural effusions with bibasilar consolidation. Correlate clinical history for evidence of a superimposed pneumonia/aspiration pneumonitis. Radiographic follow-up to resolution is recommended. 4. No acute infectious or inflammatory findings are identified in the abdomen or pelvis. 5. There are bilateral inguinal hernias. The right-sided hernia contains nonobstructed small bowel loops. 6. Sigmoid diverticulosis without CT evidence of acute diverticulitis. 7. Additional findings as above. ACT 112: Negative or not required by law. Electronically signed by: Blade Everett M.D. 11/12/2024 11:06 AM PG Care Time/CCT Total # of Minutes Spent Total Time Spent with Patient: Total time spent is greater than 50% in coordination of care (as documented) at patient's floor/unit and/or counseling patient: I spent 140 minutes overall addressing this case: 20 min in medical data review/discussion with referring provider(s) and/or preparation for the visit incl d/w primary team and nursing 20 min in direct interaction with the patient/exam 60 min in Advance Care Planning/Goals of Care discussions as detailed above in note (must be >16min) 20 min in subsequent review and synthesis of assessment and plan 20 min communicating with other providers regarding the patient's case: Nursing, care management, primary team, [facility] Advanced Care Planning 40514 Advanced Care Planning 30 Min 25452 Advanced Care Planning Additional 30 [place] [address] IN/OBS CONSULT LVL 5,80M (25 - SIGNIFICANT, SEPARATELY IDENTIFIABLE ) Patient Type New Medical Decision Making High Complexity Diagnoses Dyspnea and respiratory abnormalities R06.00; R06.89 Weakness generalized R53.1 Advanced care planning/counseling discussion Z71.89 Palliative care by specialist Z51.5 Additional Codes Advanced Care Planning - 83069 Advanced Care Planning Additional 30 Min: 41717 Advanced Care Planning Additional 30 Min ([id number]) Advanced Care Planning - 55033 Advanced Care Planning 30 Min: 73964 Advanced Care Planning 30 Min ([id number]) Comment [id number], [id number]
[2024-11-13 13:06] LABS: Anion Gap 10.0 (3-11); Blood Urea Nitrogen 66.0 mg/dl (6-23); Calcium 8.7 mg/dl (8.6-10.3); Carbon Dioxide 24.0 mmol/L (21-32); Chloride 107.0 mmol/L (98-107); Creatinine Clr Calc Pharmacy 10.1 ml/min; Glucose 105.0 mg/dl (70-99(Fasting)); Potassium 4.1 mmol/L (3.5-5.1); Sodium 141.0 mmol/L (136-145)
--- NOTE | 2024-11-13 13:08 | Electrocardiogram Report ---
Test Reason : Blood Pressure : */* mmHG Vent. Rate : 97 BPM Atrial Rate : 97 BPM P-R Int : 226 ms QRS Dur : 136 ms QT Int : 370 ms P-R-T Axes : * -11 178 degrees QTcB Int : 469 ms Sinus rhythm with 1st degree A-V block Left bundle branch block Abnormal ECG When compared with ECG of 11-Nov-2024 11:58, Premature ventricular complexes are no longer Present OH interval has increased Confirmed by Jones Amezcua ([id number]) on 11/13/2024 1:06:49 PM Referred By: REFERRED SELF Confirmed By: Jones Amezcua
[2024-11-13] MEDS ORDERED: MoRPHine SULFATE 10 MG/0.5 ML UDP PO PRN (14:31)
[2024-11-13] MEDS ORDERED: LORazepam 0.5 MG TAB PO PRN (14:36)
[2024-11-13] MEDS: TOBRAMYCIN/DEXAMETHASONE OPH SUSP 2.5 ML BTL OP SCH (16:43)
--- NOTE | 2024-11-13 17:41 | Hospitalist Progress Note ---
Date of Service November 13, 2024 Assessment & Plan (1) Hypoxia: Plan Acute on chronic heart failure with reduced ejection fraction: July 2024 ECHO w/ EF of 35-40%. Acute hypoxic respiratory failure ISO heart failure exacerbation Demand ischemia: Likely secondary to acute illness, above. Patient presents with acute shortness of breath, cough with clear sputum. Imaging CXR with pulmonary edema, BNP elevated than prior. Troponin minimally elevated, will trend. Patient denied chest pain. Patient was given IV Lasix in the ED and was able to be weaned down to from 15 L nonrebreather to 6 L nasal cannula oxygen. Patient reports feeling better after IV Lasix. Continue with diuresis, cardiology consult, repeat echo. Continue telemetry monitoring. 11/12 echocardiogram: EF 20 to 25%, small laminar apical thrombus currently on 2 L of O2 via nasal cannula continue Lasix 40 mg IV daily Continue heparin drip, plan to transition to Eliquis upon discharge evaluated by cardiology service discussed with patient and her daughter daughter at the bedside, prefers to continue with medical management only, no invasive or aggressive interventions at this point 11/13 creatinine increased to 2.7 Monitor closely while on Lasix Continue heparin drip Palliative care service consulted Abdominal pain, nausea, vomiting: possible iso acute illness, mild abd tender on exam. Will get CTAP, diet as tolerated. CT abdomen: Unrevealing Resolved Possible UTI: Patient complains of burning urine, start Rocephin, await urine analysis. urine culture:E. coli pansensitive Continue ceftriaxone IV Hypertensive urgency: c/w home bp meds, now on increased diuretic dose, add prn bp meds. Other chronic medical conditions: Continue/resume home meds as and when able. NSTEMIcontinue home aspirin, Lipitor, carvedilol Hyperlipidemiacontinue home statin Hypertensioncontinue home Coreg, lisinopril, isosorbide. As needed blood pressure medications. DVT prophylaxis: Heparin DRIP CODE STATUS: DNR/DNI plan of care discussed with patient and her daughter Regina in detail and at length all questions answered they are understanding, agreeable, comfortable with the plan of care Admission and Anticipated Discharge Date Admission Date: November 11, 2024 Subjective seen resting in bed, sitting up, on 2 L In good spirits States she feels fine today overall No shortness of breath No chest pain Feels comfortable overall No other new symptoms Review of Systems Review of Systems: all noted and negative except for above Physical Exam Physical Exam: General- oriented x 3, not in distress, speaks in sentences with no effort or accessory muscle use Eyes- anicteric Neck- no JVD Lungs- mild rales at the bases Heart- normal rate, regular rhythm; no murmurs Abdomen- normal bowel sounds, nondistended, soft, nontender Extremities- grade 1 pretibial edema, no calf tenderness Neuro- alert, oriented x 3; no gross focal neurologic deficits Skin- warm & dry Results & Data Results & Data Vital Signs (Past 12 Hours) Vital Signs Temp Pulse Resp BP BP Pulse Ox O2 Del Method 11/13/24 15:10 36.9 C 69 16 127/67 99 Nasal Cannula 11/13/24 11:27 36.7 C 68 16 124/65 98 Nasal Cannula 11/13/24 09:30 Nasal Cannula 11/13/24 07:22 36.7 C 72 16 127/68 98 Nasal Cannula O2 Flow Rate 11/13/24 15:10 2 11/13/24 11:27 2 11/13/24 09:30 2 11/13/24 07:22 2 all noted and reviewed including below
[2024-11-14 06:56] LABS: Anion Gap 7.0 (3-11); Blood Urea Nitrogen 62.0 mg/dl (6-23); Calcium 8.7 mg/dl (8.6-10.3); Carbon Dioxide 31.0 mmol/L (21-32); Chloride 104.0 mmol/L (98-107); Creatinine Clr Calc Pharmacy 10.5 ml/min; Glucose 109.0 mg/dl (70-99(Fasting)); Potassium 3.8 mmol/L (3.5-5.1); Sodium 142.0 mmol/L (136-145)
[2024-11-14 07:05] LABS: ANTI-Xa, UFH(UnfractionatedHep 0.53 IU/ml (0.3-0.7)
--- NOTE | 2024-11-14 16:03 | Cardiology Progress Note ---
Date of Service November 14, 2024 Assessment & Plan (1) NSTEMI (non-ST elevated myocardial infarction): (2) Acute respiratory distress: (3) Hypertensive emergency: (4) LV (left ventricular) mural thrombus: (5) Acute on chronic heart failure with reduced ejection fraction and diastolic dysfunction: Plan Patient is an 89 year old female admitted for SOB/hypoxia, findings consistent with acute respiratory failure with hypoxia, HFrEF and NSTEMI with hypertensive urgency. 11/14/24 -patient is resting comfortably in bed with no acute concerns -Review of telemetry shows no acute events overnight. -IV Furosemide today, consider transition to PO lasix in AM. Strict monitoring of I&O and daily weights. -Closely monitor renal function and electrolytes. -Heparin gtt x 48 hours and then transition to low dose eliquis 2.5mg PO BID as long as HgB remains stable in the setting of NSTEMI and new LV thrombus. Will continue with conservative management. -Continue ASA, statin, Coreg, Imdur and lisinopril. -Consider palliative care consult. Case has been discussed with Dr. Rodriguez. Further recommendations regarding plan of care as per his assessment. I spent a total of 30 minutes on the date of service in preparation, delivery, documentation of the care provided to the patient excluding any time spent in the performance of separately billed services. NICOLE Ventura [facility] Admission and Anticipated Discharge Date Admission Date: November 11, 2024 Supervising Physician Co-Signing Physician Notes I have reviewed the advanced practitioner's documentation on the date of service referenced in note, and I agree with, and take responsibility for the plan of care. I spent a total of 15 minutes coordinating, documenting, and providing care for this patient excluding time spent in the performance of separately billed services or time spent by another provider. 89-year-old female with NSTEMI, acute on chronic heart failure with reduced ejection fraction, and evidence of apical LV thrombus on echocardiogram. On heparin drip for LV thrombus Continue diuresis Subjective 11/14/2024: Patient seen and examined in follow up today. Offers no acute cardiac concerns. Resting in bed at time of my exam. Labs, vitals, diagnostics, telemetry and documentation reviewed. Telemetry reviewed showing SR with PaCs Rate 60-70's No acute events overnight Denies chest pain, pressure, palpitations. Denies SOB, PND, pre-syncope, syncope or edema Review of Systems Review of Systems: All systems reviewed & are unremarkable except as noted in HPI & below Physical Exam Constitutional: + frail appearing Neck: normal visual inspection and trachea midline Respiratory: normal respiratory effort, lungs clear to auscultation Cardiovascular: Heart Sounds: normal S1 and normal S2; no murmur Vessels: dorsalis pedis pulses present; no JVD Extremities: no edema Skin: no rashes, warm and dry Psychiatric: A+Ox3, euthymic affect Results & Data Vital Signs (Past 12 Hours) Vital Signs Temp Pulse Pulse Resp BP BP Pulse Ox 11/14/24 13:37 65 11/14/24 12:19 36.7 C 67 19 159/72 H 100 11/14/24 07:39 36.5 C 67 18 152/71 H 98 11/14/24 07:38 11/14/24 04:38 36.4 C L 69 17 136/66 100 O2 Del Method O2 Flow Rate 11/14/24 13:37 11/14/24 12:19 Nasal Cannula 2 11/14/24 07:39 Nasal Cannula 2 11/14/24 07:38 Nasal Cannula 2 11/14/24 04:38 Nasal Cannula 2 Laboratory Results Comprehensive Metabolic Panel 11/14/24 Range/Units 05:56 Sodium 142 (136-145) mmol/L Potassium 3.8 (3.5-5.1) mmol/L Chloride 104 (98-107) mmol/L Carbon Dioxide 31 (21-32) mmol/L BUN 62 H (6-23) mg/dl Creatinine 2.62 H (0.6-1.2) mg/dl Glucose 109 H (70-99(Fasting)) mg/dl Calcium 8.7 (8.6-10.3) mg/dl Intake and Output 11/14/24 11/14/24 11/14/24 06:59 14:59 22:59 Output Total 200 / 1200 Balance -200 / -1035.317 Output: Urine Amount (Catheter) 200 / 700 External 200 / 700 PG Care Time/CCT Total # of Minutes Spent Total Time Spent with Patient: Total time spent is greater than 50% in coordination of care (as documented) at patient's floor/unit and/or counseling patient: Coding [place] [address] SUB INP/OBS CARE 3/50MIN Patient Type Established Diagnoses NSTEMI (non-ST elevated myocardial infarction) I21.4 Acute respiratory distress R06.03 Hypertensive emergency I16.1 LV (left ventricular) mural thrombus I51.3 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 Time Spent (min) 30
--- NOTE | 2024-11-14 17:32 | Hospitalist Progress Note ---
Date of Service November 14, 2024 Assessment & Plan (1) Hypoxia: Plan Acute on chronic heart failure with reduced ejection fraction: July 2024 ECHO w/ EF of 35-40%. Acute hypoxic respiratory failure ISO heart failure exacerbation Demand ischemia: Likely secondary to acute illness, above. Patient presents with acute shortness of breath, cough with clear sputum. Imaging CXR with pulmonary edema, BNP elevated than prior. Troponin minimally elevated, will trend. Patient denied chest pain. Patient was given IV Lasix in the ED and was able to be weaned down to from 15 L nonrebreather to 6 L nasal cannula oxygen. Patient reports feeling better after IV Lasix. Continue with diuresis, cardiology consult, repeat echo. Continue telemetry monitoring. 11/12 echocardiogram: EF 20 to 25%, small laminar apical thrombus currently on 2 L of O2 via nasal cannula continue Lasix 40 mg IV daily Continue heparin drip, plan to transition to Eliquis upon discharge evaluated by cardiology service discussed with patient and her daughter daughter at the bedside, prefers to continue with medical management only, no invasive or aggressive interventions at this point 11/13 creatinine increased to 2.7 Monitor closely while on Lasix Continue heparin drip Palliative care service consulted 11/14 creatinine 2.6 Leg edema improving Continue IV Lasix Continue heparin drip Patient stable, comfortable overall Abdominal pain, nausea, vomiting: possible iso acute illness, mild abd tender on exam. Will get CTAP, diet as tolerated. CT abdomen: Unrevealing Resolved Possible UTI: Patient complains of burning urine, start Rocephin, await urine analysis. urine culture:E. coli pansensitive ceftriaxone IV--> transition to cefdinir Hypertensive urgency: c/w home bp meds, now on increased diuretic dose, add prn bp meds. Other chronic medical conditions: Continue/resume home meds as and when able. NSTEMIcontinue home aspirin, Lipitor, carvedilol Hyperlipidemiacontinue home statin Hypertensioncontinue home Coreg, lisinopril, isosorbide. As needed blood pressure medications. DVT prophylaxis: Heparin DRIP CODE STATUS: DNR/DNI plan of care discussed with patient and her daughter Regina in detail and at length all questions answered they are understanding, agreeable, comfortable with the plan of care Admission and Anticipated Discharge Date Admission Date: November 11, 2024 Subjective seen resting in bed, comfortable states she feels fine overall No shortness of breath No cough No chest pain No other new symptoms Review of Systems Review of Systems: all noted and negative except for above Physical Exam Physical Exam: General- oriented x 3, not in distress, speaks in sentences with no effort or accessory muscle use Eyes- anicteric Neck- no JVD Lungs- mild rales at the bases BL Heart- normal rate, regular rhythm; no murmurs Abdomen- normal bowel sounds, nondistended, soft, nontender Extremities- grade 1 lower extremity edema, no erythema or tenderness Neuro- alert, oriented x 3; no gross focal neurologic deficits Skin- warm & dry Results & Data Results & Data Vital Signs (Past 12 Hours) Vital Signs Temp Pulse Pulse Resp BP BP Pulse Ox 11/14/24 16:36 36.6 C 72 18 132/64 99 11/14/24 13:37 65 11/14/24 12:19 36.7 C 67 19 159/72 H 100 11/14/24 07:39 36.5 C 67 18 152/71 H 98 11/14/24 07:38 O2 Del Method O2 Flow Rate 11/14/24 16:36 Nasal Cannula 1 11/14/24 13:37 11/14/24 12:19 Nasal Cannula 2 11/14/24 07:39 Nasal Cannula 2 11/14/24 07:38 Nasal Cannula 2 all noted and reviewed including below
[2024-11-15 07:21] LABS: ANTI-Xa, UFH(UnfractionatedHep 0.44 IU/ml (0.3-0.7)
[2024-11-15] MEDS: CEFDINIR 300 MG CAP PO SCH (08:53)
--- NOTE | 2024-11-15 09:04 | Cardiology Progress Note ---
Date of Service November 15, 2024 Assessment & Plan (1) NSTEMI (non-ST elevated myocardial infarction): (2) Acute respiratory distress: (3) Hypertensive emergency: (4) LV (left ventricular) mural thrombus: (5) Acute on chronic heart failure with reduced ejection fraction and diastolic dysfunction: Plan Patient is an 89 year old female admitted for SOB/hypoxia, findings consistent with acute respiratory failure with hypoxia, HFrEF and NSTEMI with hypertensive urgency. 11/14/24 -patient is resting comfortably in bed with no acute concerns -Review of telemetry shows no acute events overnight. -IV Furosemide today, consider transition to PO lasix in AM. Strict monitoring of I&O and daily weights. -Closely monitor renal function and electrolytes. -Heparin gtt x 48 hours and then transition to low dose eliquis 2.5mg PO BID as long as HgB remains stable in the setting of NSTEMI and new LV thrombus. Will continue with conservative management. -Continue ASA, statin, Coreg, Imdur and lisinopril. -Consider palliative care consult. Case has been discussed with Dr. Rodriguez. Further recommendations regarding plan of care as per his assessment. I spent a total of 30 minutes on the date of service in preparation, delivery, documentation of the care provided to the patient excluding any time spent in the performance of separately billed services. NICOLE Ventura [facility] Cardiology [facility] Admission and Anticipated Discharge Date Admission Date: November 11, 2024 Subjective 11/15/2024: Patient seen and examined in follow up today. Feeling Labs, vitals, diagnostics, telemetry and documentation reviewed. Telemetry reviewed showing Physical Exam Constitutional: + frail appearing Neck: normal visual inspection and trachea midline Respiratory: normal respiratory effort, lungs clear to auscultation Cardiovascular: Heart Sounds: normal S1 and normal S2; no murmur Vessels: dorsalis pedis pulses present; no JVD Extremities: no edema Skin: no rashes, warm and dry Psychiatric: A+Ox3, euthymic affect Results & Data Vital Signs (Past 12 Hours) Vital Signs Temp Pulse Pulse Resp BP BP Pulse Ox 11/15/24 07:55 36.6 C 62 16 153/70 H 98 11/15/24 07:25 11/15/24 04:05 36.4 C L 75 16 163/73 H 98 11/14/24 22:42 37.0 C 70 16 117/68 97 11/14/24 21:55 71 O2 Del Method O2 Flow Rate 11/15/24 07:55 Room Air 11/15/24 07:25 Nasal Cannula 1 11/15/24 04:05 Room Air 11/14/24 22:42 Nasal Cannula 1 11/14/24 21:55 PG Care Time/CCT Total # of Minutes Spent Total Time Spent with Patient: Total time spent is greater than 50% in coordination of care (as documented) at patient's floor/unit and/or counseling patient: Coding Diagnoses NSTEMI (non-ST elevated myocardial infarction) I21.4 Acute respiratory distress R06.03 Hypertensive emergency I16.1 LV (left ventricular) mural thrombus I51.3 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
[2024-11-15 10:05] LABS: Anion Gap 4.0 (3-11); Blood Urea Nitrogen 57.0 mg/dl (6-23); Calcium 8.9 mg/dl (8.6-10.3); Carbon Dioxide 32.0 mmol/L (21-32); Chloride 105.0 mmol/L (98-107); Creatinine Clr Calc Pharmacy 13.4 ml/min; Glucose 102.0 mg/dl (70-99(Fasting)); Potassium 4.0 mmol/L (3.5-5.1); Sodium 141.0 mmol/L (136-145)
--- NOTE | 2024-11-15 13:38 | Hospitalist Progress Note ---
Date of Service November 15, 2024 Assessment & Plan (1) Hypoxia: Plan Acute on chronic heart failure with reduced ejection fraction: July 2024 ECHO w/ EF of 35-40%. Acute hypoxic respiratory failure ISO heart failure exacerbation Demand ischemia: Likely secondary to acute illness, above. Patient presents with acute shortness of breath, cough with clear sputum. Imaging CXR with pulmonary edema, BNP elevated than prior. Troponin minimally elevated, will trend. Patient denied chest pain. Patient was given IV Lasix in the ED and was able to be weaned down to from 15 L nonrebreather to 6 L nasal cannula oxygen. Patient reports feeling better after IV Lasix. Continue with diuresis, cardiology consult, repeat echo. Continue telemetry monitoring. 11/12 echocardiogram: EF 20 to 25%, small laminar apical thrombus currently on 2 L of O2 via nasal cannula continue Lasix 40 mg IV daily Continue heparin drip, plan to transition to Eliquis upon discharge evaluated by cardiology service discussed with patient and her daughter daughter at the bedside, prefers to continue with medical management only, no invasive or aggressive interventions at this point 11/13 creatinine increased to 2.7 Monitor closely while on Lasix Continue heparin drip Palliative care service consulted 11/14 creatinine 2.6 Leg edema improving Continue IV Lasix Continue heparin drip Patient stable, comfortable overall 11/15 Creatinine 2.0 Leg edema improving IV Lasix on hold transition from heparin drip to Eliquis Abdominal pain, nausea, vomiting: possible iso acute illness, mild abd tender on exam. Will get CTAP, diet as tolerated. CT abdomen: Unrevealing Resolved Possible UTI: Patient complains of burning urine, start Rocephin, await urine analysis. urine culture:E. coli pansensitive ceftriaxone IV--> transition to cefdinir Hypertensive urgency: c/w home bp meds, now on increased diuretic dose, add prn bp meds. Other chronic medical conditions: Continue/resume home meds as and when able. NSTEMIcontinue home aspirin, Lipitor, carvedilol Hyperlipidemiacontinue home statin Hypertensioncontinue home Coreg, lisinopril, isosorbide. As needed blood pressure medications. DVT prophylaxis: Heparin DRIP CODE STATUS: DNR/DNI plan of care discussed with patient and her daughter Regina in detail and at length all questions answered they are understanding, agreeable, comfortable with the plan of care Admission and Anticipated Discharge Date Admission Date: November 11, 2024 Subjective resting in bed, sitting up, comfortable, on 1 L of nasal cannula States she feels fine today No shortness of breath No other new symptoms Review of Systems Review of Systems: all noted and negative except for above Physical Exam Physical Exam: General- oriented x 3, not in distress, speaks in sentences with no effort or accessory muscle use Eyes- anicteric Neck- no JVD Lungs-mild rales BL bases Heart- normal rate, regular rhythm; no murmurs Abdomen- normal bowel sounds, nondistended, soft, nontender Extremities- mild pretibial edema, no calf tenderness Neuro- alert, oriented x 3; no gross focal neurologic deficits Skin- warm & dry Results & Data Results & Data Vital Signs (Past 12 Hours) Vital Signs Temp Pulse Pulse Resp BP BP Pulse Ox 11/15/24 13:00 63 11/15/24 11:32 36.3 C L 66 14 135/66 96 11/15/24 09:15 60 11/15/24 07:55 36.6 C 62 16 153/70 H 98 11/15/24 07:25 11/15/24 04:05 36.4 C L 75 16 163/73 H 98 O2 Del Method O2 Flow Rate 11/15/24 13:00 11/15/24 11:32 Room Air 11/15/24 09:15 11/15/24 07:55 Room Air 11/15/24 07:25 Nasal Cannula 1 11/15/24 04:05 Room Air all noted and reviewed including below
[2024-11-15] MEDS: HEPARIN DRIP- STOP ORDER ONE (20:55)
[2024-11-15] MEDS: FLUTICASONE PROPIONATE NA SPR 16 GM BTL SCH (21:18)
[2024-11-15] MEDS: APIXABAN 2.5 MG TAB PO SCH (21:18)
--- NOTE | 2024-11-16 10:32 | Hospitalist Progress Note ---
Date of Service November 16, 2024 Assessment & Plan (1) Hypoxia: Plan Acute on chronic heart failure with reduced ejection fraction: July 2024 ECHO w/ EF of 35-40%. Acute hypoxic respiratory failure ISO heart failure exacerbation Demand ischemia: Likely secondary to acute illness, above. Patient presents with acute shortness of breath, cough with clear sputum. Imaging CXR with pulmonary edema, BNP elevated than prior. Troponin minimally elevated, will trend. Patient denied chest pain. Patient was given IV Lasix in the ED and was able to be weaned down to from 15 L nonrebreather to 6 L nasal cannula oxygen. Patient reports feeling better after IV Lasix. Continue with diuresis, cardiology consult, repeat echo. Continue telemetry monitoring. 11/12 echocardiogram: EF 20 to 25%, small laminar apical thrombus currently on 2 L of O2 via nasal cannula continue Lasix 40 mg IV daily Continue heparin drip, plan to transition to Eliquis upon discharge evaluated by cardiology service discussed with patient and her daughter daughter at the bedside, prefers to continue with medical management only, no invasive or aggressive interventions at this point 11/13 creatinine increased to 2.7 Monitor closely while on Lasix Continue heparin drip Palliative care service consulted 11/14 creatinine 2.6 Leg edema improving Continue IV Lasix Continue heparin drip Patient stable, comfortable overall 11/15 Creatinine 2.0 Leg edema improving IV Lasix on hold transition from heparin drip to Eliquis 11/16 Creatinine pending Off oxygen supplement IV Lasix on hold Transition from heparin drip to Eliquis Awaiting cardiology recommendations regarding diuretics Appreciate palliative care service recommendations plan to possibly discharge to home with home hospice in 1 to 2 days once cleared by Cardiology Abdominal pain, nausea, vomiting: possible iso acute illness, mild abd tender on exam. Will get CTAP, diet as tolerated. CT abdomen: Unrevealing Resolved Possible UTI: Patient complains of burning urine, start Rocephin, await urine analysis. urine culture:E. coli pansensitive ceftriaxone IV--> transition to cefdinir Hypertensive urgency: c/w home bp meds, now on increased diuretic dose, add prn bp meds. Other chronic medical conditions: Continue/resume home meds as and when able. NSTEMIcontinue home aspirin, Lipitor, carvedilol Hyperlipidemiacontinue home statin Hypertensioncontinue home Coreg, lisinopril, isosorbide. As needed blood pressure medications. DVT prophylaxis: Heparin DRIP CODE STATUS: DNR/DNI Admission and Anticipated Discharge Date Admission Date: November 11, 2024 Subjective seen sitting up in bed, sleeping but easily awakened In good spirits States she feels fine overall No shortness of breath, chest pain No abdominal pain, problems with urination No other new symptoms Review of Systems Review of Systems: all noted and negative except for above Physical Exam Physical Exam: General- oriented x 3, not in distress, speaks in sentences with no effort or accessory muscle use Eyes- anicteric Neck- no JVD Lungs- Very mild crackles bilateral bases Heart- normal rate, regular rhythm; no murmurs Abdomen- normal bowel sounds, nondistended, soft, nontender Extremities- mild bilateral pretibial edema, no calf tenderness Neuro- alert, oriented x 3; no gross focal neurologic deficits Skin- warm & dry Results & Data Results & Data Vital Signs (Past 12 Hours) Vital Signs Temp Pulse Pulse Resp BP Pulse Ox O2 Del Method 11/16/24 08:00 66 11/16/24 07:32 36.5 C 69 16 159/74 H 92 Room Air 11/16/24 03:33 36.6 C 73 16 164/78 H 94 Room Air 11/15/24 23:02 36.7 C 65 14 147/70 H 92 Room Air all noted and reviewed including below
[2024-11-16 11:18] LABS: Anion Gap 7.0 (3-11); Blood Urea Nitrogen 57.0 mg/dl (6-23); Calcium 9.2 mg/dl (8.6-10.3); Carbon Dioxide 29.0 mmol/L (21-32); Chloride 104.0 mmol/L (98-107); Creatinine Clr Calc Pharmacy 15.6 ml/min; Glucose 89.0 mg/dl (70-99(Fasting)); Magnesium 2.2 mg/dl (1.7-2.4); Potassium 4.2 mmol/L (3.5-5.1); Sodium 140.0 mmol/L (136-145)
[2024-11-17 06:47] LABS: Anion Gap 5.0 (3-11); Blood Urea Nitrogen 54.0 mg/dl (6-23); Calcium 9.4 mg/dl (8.6-10.3); Carbon Dioxide 29.0 mmol/L (21-32); Chloride 104.0 mmol/L (98-107); Creatinine Clr Calc Pharmacy 15.0 ml/min; Glucose 100.0 mg/dl (70-99(Fasting)); Magnesium 2.2 mg/dl (1.7-2.4); Potassium 4.3 mmol/L (3.5-5.1); Sodium 138.0 mmol/L (136-145)
[2024-11-17 09:23] VITALS: PULSE 64
[2024-11-17 11:05] VITALS: RESP 19; TEMP 97.5; O2SAT 94
--- NOTE | 2024-11-17 11:23 | Discharge Summary ---
Discharge Summary Date of Service November 17, 2024 Principal Dx & Hospital Course #1 = Principal Diagnosis (1) Hypoxia: Plan Acute on chronic heart failure with reduced ejection fraction: July 2024 ECHO w/ EF of 35-40%. Acute hypoxic respiratory failure ISO heart failure exacerbation Demand ischemia: Likely secondary to acute illness, above. Apical Thrombus Patient presents with acute shortness of breath, cough with clear sputum. Imaging CXR with pulmonary edema, BNP elevated than prior. Troponin minimally elevated, will trend. Patient denied chest pain. Patient was given IV Lasix in the ED and was able to be weaned down to from 15 L nonrebreather to 6 L nasal cannula oxygen. Patient reports feeling better after IV Lasix. Continue with diuresis, cardiology consult, repeat echo. Continue telemetry monitoring. 11/12 echocardiogram: EF 20 to 25%, small laminar apical thrombus currently on 2 L of O2 via nasal cannula continue Lasix 40 mg IV daily Continue heparin drip, plan to transition to Eliquis upon discharge evaluated by cardiology service discussed with patient and her daughter daughter at the bedside, prefers to continue with medical management only, no invasive or aggressive interventions at this point 11/13 creatinine increased to 2.7 Monitor closely while on Lasix Continue heparin drip Palliative care service consulted 11/14 creatinine 2.6 Leg edema improving Continue IV Lasix Continue heparin drip Patient stable, comfortable overall 11/15 Creatinine 2.0 Leg edema improving IV Lasix on hold transition from heparin drip to Eliquis 11/16 Creatinine pending Off oxygen supplement IV Lasix on hold Transition from heparin drip to Eliquis Awaiting cardiology recommendations regarding diuretics Appreciate palliative care service recommendations plan to possibly discharge to home with home hospice in 1 to 2 days once cleared by Cardiology 11/17 stable overall on room air discussed with Cardiology SVC Dr Carmona discharge on Lasix 40mg and 20mg daily alternating with potassium supplement Eliquis 2.5mg PO BID continue ASA Abdominal pain, nausea, vomiting: possible iso acute illness, mild abd tender on exam. Will get CTAP, diet as tolerated. CT abdomen: Unrevealing Resolved Possible UTI: Patient complains of burning urine, start Rocephin, await urine analysis. urine culture:E. coli pansensitive ceftriaxone IV--> transitioned to cefdinir--> completed treatment Hypertensive urgency: c/w home bp meds, now on increased diuretic dose Other chronic medical conditions: Continue/resume home meds as and when able. NSTEMIcontinue home aspirin, Lipitor, carvedilol Hyperlipidemiacontinue home statin Hypertensioncontinue home Coreg, lisinopril, isosorbide. DC To the [facility] plan of care discussed with patient and daughter Regina in detail all questions answered they are understanding, agreeable, comfortable with the plan of care Notes For Next Care Provider Medication Changes From Visit as per med rec Admission HPI Per Admitting Provider 89-year-old lady with PMH of hypothyroidism, HLD, CKD stage IV, GERD, depression presents with acute respiratory distress from the [facility]. Patient's daughters were at bedside. History taken from chart review, discussion with ED physician, discussion with patient and patient's daughters. Per patient's daughter, she was at her baseline state of health until last evening, she started to have coughing fits last night, in the morning she was noted to have abdominal pain and some fever and increasing cough. Cough was with clear sputum according to the daughters. Patient had some nausea and vomiting in the morning. Patient does report some burning while passing urine for a while. Per patient's daughter, her oxygen dropped to 84% on room air at the [facility] and her blood pressure was high with SBP in 200s. Per discussion with the ED physician, patient was placed on nonrebreather and received IV Lasix in the ED and was able to wean down to 6 L nasal cannula oxygen. The daughter stated that she had similar situation in July and was admitted for heart failure exacerbation. Patient does not smoke tobacco or use alcohol. DNR/DNI as per my discussion with the patient and her daughters at bedside. Medications and plan of care reviewed with the patient and her daughters at bedside. Patient takes dorzolamide timolol eyedrops every morning, Synthroid 75 mcg every morning except Sundays, sodium bicarbonate 650 mg tablet twice daily, aspirin 81 mg every morning, Lipitor 20 mg daily, Coreg 6.25 mg twice daily, Lasix 10 mg Daily, Imdur 30 mg Daily, Prinivil 2.5 mg daily, Prilosec 20 mg daily, Pepcid 20 mg at bedtime, Lumigan 0.01% eyedrops at bedtime, Zoloft 50 mg in the evening. Admission Exam Per Admitting Provider GENERAL: Alert and oriented x3. NAD, on 4L NC O2, appears old, weak, frail, ill. HEENT: No pallor, no icterus. Pupils equal, round and reactive to light. Oral mucosa moist. NECK: No JVD, no neck masses. HEART: S1 and S2 heard. Regular rate and rhythm. HR in 100s, No murmur, no gallop. RESPIRATORY SYSTEM: Normal AP diameter. No accessory muscle use. No wheezing, b/l crackles. ABDOMEN: Soft, bowel sounds present, generalized tender x mild, no distention. CENTRAL NERVOUS SYSTEM: No facial droop. Speech is clear. Obeys simple commands. Moves extremities. EXTREMITIES: trace ble edema, no erythema seen. Discharge Exam General- oriented x 3, not in distress, speaks in sentences with no effort or accessory muscle use Eyes- anicteric Neck- no JVD Lungs- Very mild crackles bilateral bases Heart- normal rate, regular rhythm; no murmurs Abdomen- normal bowel sounds, nondistended, soft, nontender Extremities- mild bilateral pretibial edema, no calf tenderness Neuro- alert, oriented x 3; no gross focal neurologic deficits Skin- warm & dry Updated Medication List Medication Instructions Recorded Confirmed Type atorvastatin 20 mg tablet 20 mg PO QAM 07/30/24 11/11/24 History bimatoprost 0.01 % eye drops 1 drp ophthalmic (eye) HS 07/30/24 11/11/24 History (Lumigan) dorzolamide 22.3 mg-timolol 6.8 1 drp [facility] 07/30/24 11/11/24 History mg/mL eye drops levothyroxine 75 mcg tablet 75 mcg PO 6XWK 07/30/24 11/11/24 History lisinopril 2.5 mg tablet 2.5 mg PO QAM 07/30/24 11/11/24 History omeprazole 20 mg tablet,delayed 20 mg PO QAM 07/30/24 11/11/24 History release sertraline 50 mg tablet 50 mg PO QPM 07/30/24 11/11/24 History carvedilol 6.25 mg tablet 6.25 mg PO BIDM #60 tabs 08/05/24 11/11/24 Rx isosorbide mononitrate 30 mg 30 mg PO QAM #30 tabs 08/05/24 11/11/24 Rx tablet,extended release 24 hr acetaminophen 325 mg tablet 650 mg PO Q4H PRN Pain 11/11/24 11/11/24 History acetaminophen 500 mg tablet 1,000 mg PO BID PRN Pain 11/11/24 11/11/24 History aspirin 81 mg chewable tablet 81 mg PO DAILY 11/11/24 11/11/24 History estradiol 0.01% (0.1 mg/gram) 1 g vaginal 2XWK 11/11/24 11/11/24 History vaginal cream famotidine 20 mg tablet 20 mg PO HS 11/11/24 11/11/24 History lactase 3,000 unit tablet (Lactaid) 9,000 unit PO DAILY PRN W/ Dairy 11/11/24 11/11/24 History food loperamide 2 mg capsule (Imodium 2 mg PO TID PRN Diarrhea 11/11/24 11/11/24 History A-D) haseneci-ent-rrffz acid 0.4 1 tab PO 3XWK 11/11/24 11/11/24 History mg-lycopene 300 mcg-lutein 250 mcg tablet (Centrum Silver) ondansetron HCl 4 mg tablet 4 mg PO Q6H PRN Nausea And Vomiting 11/11/24 11/11/24 History sodium bicarbonate 650 mg tablet 650 mg PO BID 11/11/24 11/11/24 History L.acidop,casei,lactis,rham-B.lact,zaria 1 cap PO DAILY 7 days #7 caps 11/17/24 Rx 625 mg (10 billion cell) capsule (Advanced Probiotic) apixaban 2.5 mg tablet (Eliquis) 2.5 mg PO BID 30 days #60 tabs 11/17/24 Rx furosemide 20 mg tablet 20 mg PO UD #60 tabs 11/17/24 11/11/24 Rx potassium chloride 10 mEq 20 meq (2 x 10 mEq) PO DAILY 30 11/17/24 Rx tablet,extended release days #60 tabs Hospital Stay Data Consultations 11/11/24 13:42 ED Decision to Admit Stat 11/11/24 14:20 Consult Cardiology Routine 11/12/24 15:50 Consult Palliative Care Routine Diagnostic Imagining Performed Laboratory Results WBC 7.02 K/ul (4.8-10.8) 11/13/24 05:56 RBC 2.94 M/uL (4.20-5.40) L 11/13/24 05:56 Hgb 9.1 g/dl (12.0-16.0) L 11/13/24 05:56 Hct 28.1 % (37.0-47.0) L 11/13/24 05:56 MCV 95.6 fL (80.0-100.0) 11/13/24 05:56 MCH 31.0 pg (25.0-34.0) 11/13/24 05:56 MCHC 32.4 g/dL (32.0-36.0) 11/13/24 05:56 RDW Std Deviation 50.3 fL (36.4-46.3) H 11/13/24 05:56 RDW Coeff of Amanda 14.6 % (11.5-14.5) H 11/13/24 05:56 Plt Count 118 K/uL (130-400) L 11/13/24 05:56 MPV 11.1 fL (9.4-12.4) 11/13/24 05:56 Immature Gran % (Auto) 0.4 % 11/13/24 05:56 Neut % (Auto) 65.1 % 11/13/24 05:56 Lymph % (Auto) 18.9 % 11/13/24 05:56 [place] % (Auto) 12.4 % 11/13/24 05:56 Eos % (Auto) 2.8 % 11/13/24 05:56 Baso % (Auto) 0.4 % 11/13/24 05:56 Neut # (Auto) 4.56 K/uL (1.40-6.50) 11/13/24 05:56 Lymph # (Auto) 1.33 K/uL (1.20-3.40) 11/13/24 05:56 [place] # (Auto) 0.87 K/uL (0.11-0.59) H 11/13/24 05:56 Eos # (Auto) 0.20 K/uL (0.00-0.50) 11/13/24 05:56 Baso # (Auto) 0.03 K/uL (0.00-0.20) 11/13/24 05:56 Immature Gran # (Auto) 0.03 K/uL (0.01-0.20) 11/13/24 05:56 PT 10.9 Seconds (9.0-12.0) 11/12/24 05:00 INR 1.0 (0.9-1.1) 11/12/24 05:00 APTT 30 Seconds (21-31) 11/12/24 05:00 PTT Ratio 1.1 11/12/24 05:00 Heparin Anti-Xa, Unfract 0.44 IU/ml (0.3-0.7) 11/15/24 06:26 Sodium 138 mmol/L (136-145) 11/17/24 06:01 Potassium 4.3 mmol/L (3.5-5.1) 11/17/24 06:01 Chloride 104 mmol/L (98-107) 11/17/24 06:01 Carbon Dioxide 29 mmol/L (21-32) 11/17/24 06:01 Anion Gap 5 (3-11) 11/17/24 06:01 BUN 54 mg/dl (6-23) H 11/17/24 06:01 Creatinine 2.00 mg/dl (0.6-1.2) H 11/17/24 06:01 Est Cr Clr Drug Dosing 15.0 ml/min 11/17/24 06:01 eGFR 23.44 11/17/24 06:01 BUN/Creatinine Ratio 27.0 (10-20) H 11/17/24 06:01 Glucose 100 mg/dl (70-99(Fasting)) H 11/17/24 06:01 Calcium 9.4 mg/dl (8.6-10.3) 11/17/24 06:01 Phosphorus 6.0 mg/dl (2.5-4.9) H 11/12/24 05:00 Magnesium 2.2 mg/dl (1.7-2.4) 11/17/24 06:01 Total Bilirubin 0.4 mg/dl (0.2-1.0) 11/11/24 12:00 AST 20 U/L (13-39) 11/11/24 12:00 ALT 15 U/L (7-52) 11/11/24 12:00 Alkaline Phosphatase 64 U/L (34-104) 11/11/24 12:00 Troponin I High Sens 2686.4 pg/ml (0-14) H* 11/12/24 09:04 B-Natriuretic Peptide 1495 pg/ml (0-100) H 11/11/24 12:00 Total Protein 7.3 gm/dl (6.0-8.3) 11/11/24 12:00 Albumin 3.8 gm/dl (3.4-5.0) 11/11/24 12:00 Globulin 3.5 gm/dl (2.5-4.0) 11/11/24 12:00 Albumin/Globulin Ratio 1.1 (0.9-2) 11/11/24 12:00 Procalcitonin 0.02 ng/ml (0-0.5) 11/11/24 12:00 Urine Color Yellow 11/11/24 18:10 Urine Appearance Clear (Clear) 11/11/24 18:10 Urine pH 5.5 (4.5-7.5) 11/11/24 18:10 Ur Specific [place] 1.015 (1.000-1.030) 11/11/24 18:10 Urine Protein 2+ (Negative) H 11/11/24 18:10 Urine Glucose (UA) Negative (Negative) 11/11/24 18:10 Urine Ketones Negative (Negative) 11/11/24 18:10 Urine Blood 1+ (Negative) H 11/11/24 18:10 Urine Nitrite Negative (Negative) 11/11/24 18:10 Urine Bilirubin Negative (Negative) 11/11/24 18:10 Urine Urobilinogen Negative (Negative) 11/11/24 18:10 Ur Leukocyte Esterase 2+ (Negative) H 11/11/24 18:10 Urine RBC 3-5 /hpf (0-2) H 11/11/24 18:10 Urine WBC 21-50 /hpf (0-5) H 11/11/24 18:10 Ur Epithelial Cells 0-2 /hpf (0-2) 11/11/24 18:10 Urine Bacteria 3+ (None Seen) H 11/11/24 18:10 Urine Mucus Present (None Prsent) A 11/11/24 18:10 Urine Comment 11/11/24 18:10 SARS-CoV-2 (PCR) NEGATIVE (Negative) 11/11/24 12:05 Influenza Type A (PCR) Negative (Neg) 11/11/24 12:05 Influenza Type B (PCR) Negative (Neg) 11/11/24 12:05 RSV (RT-PCR) Negative (Neg) 11/11/24 12:05 Impressions Chest X-Ray 11/11/24 12:11 XR chest 1V portable HISTORY: 89 years-old Female Dyspnea COMPARISON: 07/31/2024, 07/30/2024. TECHNIQUE: AP view of the chest FINDINGS: Cardiac silhouette is enlarged. There is no pneumothorax. Probable trace pleural effusions. Probable hiatal hernia. Diffuse interstitial coarsening is again noted with ill-defined right midlung and right basilar airspace opacities redemonstrated, not significantly similar to the July 2024 exams. Bones appear grossly intact. IMPRESSION: 1. Cardiomegaly with mixed interstitial and alveolar opacities redemonstrated, similar to the July 2024 exams. Differential considerations include asymmetric pulmonary edema versus multifocal pneumonia. 2. Probable trace pleural effusions. ACT 112: Negative or not required by law. The above report was generated using voice recognition software. It may contain grammatical, syntax or spelling errors. Electronically signed by: Phillip Nicole M.D. 11/11/2024 1:29 PM Abdomen/Pelvis CT 11/11/24 14:19 CT SCAN OF THE ABDOMEN AND PELVIS WITHOUT IV CONTRAST CLINICAL HISTORY: Generalized abdominal pain. COMPARISON STUDY: No priors TECHNIQUE: CT scan of the abdomen and pelvis is performed from the lung bases to the proximal femora. Images are reviewed in the axial, sagittal, and coronal planes. IV contrast was not administered for this examination. Note that the examination was performed in suboptimal fashion without oral and IV contrast. There is streak artifact from the arms which could not be elevated above the abdomen as well as motion artifact. A dose lowering technique was utilized adhering to the principles of ALARA. CT DOSE: 601.63 mGy.cm FINDINGS: Lung bases: The heart is enlarged and without pericardial effusion. The coronary arteries are densely calcified. There is a moderate hiatal hernia. There are small pleural effusions with dependent consolidation. Milder groundglass opaciti es are seen in the right lower lung and there is diffuse intralobular septal thickening. Liver: The unenhanced liver is normal in size, contour, and attenuation. There is mild central intrahepatic biliary ductal dilatation. Gallbladder: Surgically absent noting clips in the gallbladder fossa. Spleen: Normal in size and attenuation. Pancreas: The unenhanced pancreas is moderately atrophic and grossly unremarkable. Adrenal glands: Unremarkable. Kidneys: The unenhanced kidneys are atrophic and without hydronephrosis. There are no renal calculi identified. There is no evidence of contour deforming renal mass lesion. Abdominal vasculature: There is advanced atherosclerotic calcification and mild ectasia of the abdominal aorta. Bowel: There is retrosigmoid fecal retention. No bowel obstruction is seen. There is diverticulosis of the sigmoid colon without CT evidence of acute diverticulitis. The appendix is well-visualized and normal. Peritoneum: There is no intraperitoneal free air or abdominal ascites. Lymphadenopathy: None. Pelvic viscera: The bladder is mildly distended but otherwise normal as imaged. The uterus is surgically absent. No adnexal lesion is seen. A right inguinal hernia contains nonobstructed small bowel loops. There is a fat-containing inguinal hernia on left. Skeletal structures: The skeletal structures are osteopenic. There is moderate to advanced lumbosacral spondylosis and moderate scoliosis. No lytic or blastic lesions are seen. There are chronic/healed left-sided rib fractures. Soft tissues: There is mild body wall edema. IMPRESSION: 1. Suboptimal examination without oral and IV contrast. There is also streak and motion artifact. 2. Cardiomegaly with evidence of congestive failure. 3. There are small pleural effusions with bibasilar consolidation. Correlate clinical history for evidence of a superimposed pneumonia/aspiration pneumonitis. Radiographic follow-up to resolution is recommended. 4. No acute infectious or inflammatory findings are identified in the abdomen or pelvis. 5. There are bilateral inguinal hernias. The right-sided hernia contains nonobstructed small bowel loops. 6. Sigmoid diverticulosis without CT evidence of acute diverticulitis. 7. Additional findings as above. ACT 112: Negative or not required by law. Electronically signed by: Blade Everett M.D. 11/12/2024 11:06 AM 11/11/24 14:19 CT Abd and Pelvis [CT abd pelvis wo con] Routine Pending Results Patient Have Any Pending Studies at Discharge: No Discharge Instructions Given to Patient (Per Discharging Provider) PLEASE REFER TO HOSPITAL DISCHARGE SUMMARY. Total Time Total Time Spent Total Time Spent (In Minutes): 45 minutes
[2024-11-17 11:36] VITALS: BP 163/73
== END 2024-11-17 13:10 | disposition hospice, home (50) | DRG 280 ==
LOC: ED 11:50 → SUATTDRO 14:23 → 2S 14:23
DX: Z79.82 Long term (current) use of aspirin; N39.0 Urinary tract infection, site not specified; N18.4 Chronic kidney disease, stage 4 (severe); Z91.041 Radiographic dye allergy status; J96.01 Acute respiratory failure with hypoxia; B96.20 Unspecified Escherichia coli [E. coli] as the cause of diseases classified elsewhere; R11.2 Nausea with vomiting, unspecified; Z51.5 Encounter for palliative care; K21.9 Gastro-esophageal reflux disease without esophagitis; I21.4 Non-ST elevation (NSTEMI) myocardial infarction; R10.9 Unspecified abdominal pain; I13.0 Hypertensive heart and chronic kidney disease with heart failure and stage 1 through stage 4 chronic kidney disease, or unspecified chronic kidney disease; I16.0 Hypertensive urgency; F32.A Depression, unspecified; Z79.890 Hormone replacement therapy; E78.5 Hyperlipidemia, unspecified; Z66 Do not resuscitate; H10.023 Other mucopurulent conjunctivitis, bilateral; I08.3 Combined rheumatic disorders of mitral, aortic and tricuspid valves; Z88.2 Allergy status to sulfonamides; E03.9 Hypothyroidism, unspecified; Z79.899 Other long term (current) drug therapy; I50.23 Acute on chronic systolic (congestive) heart failure